=== PATIENT | female | born 1965 | race Caucasian/White ===

== ENCOUNTER 2024-02-19 09:55 | Outpatient (REF) | payer MEDICARE, SELFPAY | END 2024-02-19 09:56 | disposition home or self-care (01) | LOC: CF 09:55 | DX: Z13.89 Encounter for screening for other disorder (principal) ==

== ENCOUNTER 2024-02-20 12:42 | Outpatient (AMB) | payer OTHER, SELFPAY ==
--- NOTE | 2024-02-20 12:55 | A.SPINEOV_ITS ---
Intake Visit Reasons: cervical stenosis Intake Note: Ms. 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 HPI: This 58-year-old female developed severe neck pain in December 2023 after she put something in the often. The pain has not subsided. It feels like her head is too heavy for her neck. The pain radiates from the neck to the shoulders but does not go down her arms. At night she wakes up with numbness of her arms. She is currently in chiropractic therapy. She is petrified of injections. PMH: Hypertension, hypothyroidism, lumbar fusion Medications: Synthroid Allergies: Morphine, Lipitor, steroids Social history: Physical Exam: Pleasant female. Extension of the neck is painful. No neurological deficits for motor sensation or reflexes Radiological Studies: MRI of the cervical spine that is uploaded in our system shows severe degenerative disc disease C3-4, C4-5, C5-6 and C6-7 with multilevel neuroforaminal stenosis. Impression/Plan: This patient is suffering from an acute neck pain with severe arthritic changes on her MRI of the cervical spine. I explained to the patient that it is unclear to me where this sudden pain is coming from. Obviously, the arthritic changes were pre-existent. Chiropractic therapy seems to give some relief. Therefore I recommended to continue this. She should consider injections if the pain does not alleviates in the near future. I do not recommend any surgical intervention. Thank you for allowing me to participate in your patients care. total time spent was 35 minutes in counseling ,coordination of plan, personal review of imaging, surgical decision making and subsequent plan Sean Gilliam MD, PhD Spine Fellowship Trained Neurosurgeon Director, [facility] Coding Level of Care Code New Pt Level 3 (93501) Diagnoses Cervical radiculopathy due to degenerative joint disease of spine M47.22
== END 2024-02-20 14:47 | disposition home or self-care (01) ==
PROVIDERS: Visit Provider Neurological Surgery
DX: M47.22 Other spondylosis with radiculopathy, cervical region (principal)
CPT/HCPCS: 99203

== ENCOUNTER → 2024-02-20 12:42 | Outpatient (BNVA) | payer MEDICARE, OTHER, SELFPAY | PROVIDERS: Visit Provider Neurological Surgery ==

== ENCOUNTER 2025-06-29 13:46 | Outpatient (AMB) | payer OTHER, SELFPAY ==
--- NOTE | 2025-06-29 14:15 | A.SPINEOV_ITS ---
Intake Visit Reasons: Severe Neck/Back pain Intake Note: Mrs. Holley is here today c/o Severe Neck and back pain. 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 This patient developed severe sciatica 5 months ago. The pain radiates from the back down to her leg to the outside of her ankle. The pain is horrific and not responding to any forms of medication. She can hardly sleep. She can not walk or stand and sitting is the worst. Last week she went to the emergency room when she was giving a shot of Toradol that resulted in now also mild radiation in the left buttock. On exam, straight leg raise is positive with radiating pain down the right side in an L5 distribution. No motor or sensory deficits. An MRI of the lumbar spine at [place] shows status post L5-S1 lumbar fusion. More importantly there is a large synovial cyst L4-5 compressing the right L5 nerve root and that causes severe central stenosis. Dynamic lumbar x-rays today show a mild L4-5 spondylolisthesis without signs of instability. In summary, this patient is suffering from horrific right L5 radiculopathy due to a large synovial cyst compressing the L5 nerve root. Fortunately, there is no gross instability and therefore a resection of the extradural mass should be sufficient to relieve the right leg pain. She is aware that postoperatively the cyst can return, which would automatically make her a fusion candidate to treat the adjacent L4-5 segment. She is scheduled for 07/06/2025. I spent 40 minutes in his consult for history physical and review of imaging. Orders: Orders XR lumbar spine 4V min Today M54.16 - Radiculopathy, lumbar region, M71.38 - Other bursal cyst, other site Medications: New hydrocodone-acetaminophen 5-325 mg Partial Fill upon patient request. 1 tab PO TID PRN 20 tabs 0RF pain Coding Level of Care Code Est Pt Level 4 (59670) Diagnoses Synovial cyst of lumbar facet joint M71.38 Lumbar radiculopathy, right M54.16
--- OUTSIDE RECORDS SUMMARY | 2025-06-29 16:14 | XMS_ITS | Clinical Summary ---
Author Organization [facility] Address [address] [place] [address] Care Team Providers Care Financial Compliance Officer Name Role Phone Toma Fuentes MD Primary Care Provider Allergies Active Allergy Reactions Criticality Noted Date Comments Atorvastatin Angioedema High 03/08/2025 Morphine Vomiting 03/08/2025 Itchiness, tremors Medications predniSONE (DELTASONE) 10 mg tablet 18 day taper - 6,6,6,5,5,5,4,4, 4,3,3,3,2,2,2,1, 1,1 63 tablet Active Additional Information Patient not taking.Reported on 06/23/2025 cyclobenzaprine (FLEXERIL) 10 mg tablet SMARTSI Tablet(s) By Mouth 3 Times Daily Active DULoxetine DR (CYMBALTA) 60 mg capsule Take 60 mg by mouth once a day. Active DULoxetine DR (CYMBALTA) 30 mg capsule SMARTSI Capsule(s) By Mouth Daily Active levothyroxine (SYNTHROID, LEVOTHROID) 125 mcg tablet SMARTSI Tablet(s) By Mouth Daily Active rosuvastatin (CRESTOR) 10 mg tablet Take 10 mg by mouth once a day. Active calcium carbonate-vitam in D3 600 mg-10 mcg (400 unit) per tablet SMARTSI Tablet(s) By Mouth Twice Daily Active busPIRone (BUSPAR) 10 mg tablet SMARTSI Tablet(s) By Mouth Twice Daily 5 Active buPROPion XL (WELLBUTRIN XL) 150 mg tablet Take 150 mg by mouth once a day. Active buprenorphine (BUTRANS) 15 mcg/hour SMARTSI Patch(s) Once a Week Active Social History Tobacco Use Types Packs/Day Years Used Date Smoking Tobacco: Never Smokeless Tobacco: Never Tobacco Cessation:Counseling Given: Not Answered Alcohol Use Standard Drinks/Week Comments Yes 0 (1 standard drink = 0.6 oz pur e alcohol) Comments Unknown Sex and Gender Information Value Date Recorded Sex Assigned at Not on file Legal Sex Female 6:46 AM EDT Gender Identity Not on file Sexual Orientation Not on file Last Filed Vital Signs Vital Sign Reading Time Taken Comments Blood Pressure 136/88 03/08/2025 5:29 PM EDT Pulse 102 03/08/2025 5:29 PM EDT Temperature 35.7 C (96.3 F) 03/08/2025 5:29 PM EDT Respiratory Rate - - Oxygen Saturation 96% 03/08/2025 5:29 PM EDT Inhaled Oxygen Concentration - - Weight 86.8 kg (191 lb 6.4 oz) 03/08/2025 5:29 P M EDT Height - - Body Mass Index - - Plan of Treatment Health Maintenance Due Date Last Done Comments Cervical Cancer Screening 1965 FOBT / Fit Test 1965 HIV Screening 1965 HPV and Pap Smear 1965 Hepatitis C Screening 1965 Pap Smear 1965 Sigmoidoscopy 1965 Mammogram 2005 Pneumococcal Vaccine: 50+ Ye ars (1 of 1 - PCV) 2015 Hepatitis B Vaccines (3 of 3 - 19+ 3-dose series) 02/28/2020 10/18/2019, 08/30/2019 Zoster Vaccines (2 of 2) 09/08/2020 020, 10/18/2019, 08/30/2019 Cologuard 07/12/2024 07/12/2021, 07/12/2021 Alcohol/Substance Use Screening 10/06/2024 Depression Screening and Follow-Up 10/06/2024 Social Drivers of Health Vandana ual Screening 10/06/2024 Influenza Vaccine (#1) 2025 , 08/25/2023, 07/10/2021, Additional history exists DTaP,Tdap,and Td Vaccines (2 - Td or Tdap) 12/02/2033 12/02/2023 Colon Cancer Screening 11/16/2034 Colonoscopy 11/16/2034 11/16/2024, 08/20/2021 RSV Vaccine (60+ years old a nd patients) (1 - 1-dose 75+ series) 2040 COVID-19 Vaccine Completed 07/21/2024, , 08/22/2022, Additional history exists Insurance [facility] Care Teams Financial Compliance Officer Relationship Specialty Start Date End Date Toma Fuentes MD [address] [place] [address] PCP - General 04/24/17
--- OUTSIDE RECORDS SUMMARY | 2025-06-29 16:14 | XMS_ITS | Clinical Summary ---
Author Organization [facility] Address [address] [place] [address] Care Team Providers Care Bow Maker Production Name Role Phone Unavailable Primary Care Provider Unavailabl e Social History Tobacco Use Types Packs/Day Years Used Date Smoking Tobacco: Never Assessed Comments Unknown Sex and Gender Information Value Date Recorded Sex Assigned at Not on file Legal Sex Female 9:04 PM EDT Gender Identity Not on file Sexual Orientation Not on file Plan of Treatment Health Maintenance Due Date Last Done Comments Hepatitis C Screening 1965 Pap Smear 1981 DTaP/Tdap/Td (1 - Tdap) 1983 Mammogram/Breast Imaging 2005 Pneumococcal 50+ years (1 of 1 - PCV) 2015 Zoster (Shingrix) (1 of 2) 2015 COVID-19 Vaccine ( - 2023-2 5 season) 2025 Influenza (#1) 2025 RSV (1 - 1-dose 75+ series) 2040 HPV Vaccine (No Doses Required) Completed Hep A Aged Out No longer eligi ble based on patient's age to complete this topic Hep B Aged Out No longer eligi ble based on patient's age to complete this topic Hib Aged Out No longer eligi ble based on patient's age to complete this topic Meningococcal ACWY Aged Out No longer eligible based on patient's age to complete this topic Zoster (Zostavax) Discontinued
== END 2025-06-29 15:17 | disposition home or self-care (01) ==
PROVIDERS: Visit Provider Neurological Surgery
DX: M71.38 Other bursal cyst, other site (principal); M54.16 Radiculopathy, lumbar region
CPT/HCPCS: 99214

== ENCOUNTER 2025-06-29 13:46 | Outpatient (REF) | payer OTHER, SELFPAY ==
--- NOTE | ~2025-06-29 | XR_ITS ---
Examination: 4 view lumbar spine x-ray TECHNIQUE: AP and lateral: Flexion, neutral, and extension view x-rays of the lumbar spine. INDICATION: M71.38 - Other bursal cyst, other site No comparison study FINDINGS: There is moderate stool in the colon. Atherosclerotic calcifications are visible in the aorta and iliac arteries. There are 5 non-rib bearing lumbar segments. Vertebral body height is preserved. T12-L1: Unremarkable L1-L2: There is mild disc space narrowing L2-L3: Moderate severe disc space narrowing with subtle retrolisthesis, endplate sclerosis, and anterior osteophytes are present. There is no instability. L3-L4: There is mild to moderate disc space narrowing. There is subtle anterolisthesis on flexion without instability. There is facet sclerosis. L4-L5: There is mild disc space narrowing with minimal grade 1 anterolisthesis that is stable during flexion and extension. There is facet sclerosis. L5-S1: Level is fused with a screw placed from anterior sacrum into the L5 vertebral body. There are 2 small screws placed into the pedicles. There is interbody bone graft with osseous bridging. XR/XR lumbar spine 4V min IMPRESSION: Multilevel degenerative changes are most advanced at L2-3. There is no instability. L5-S1 surgical fusion. Electronically signed by: Bryant Morrow MD 06/29/2025 05:13 PM EDT RP
== END 2025-06-29 13:47 | disposition home or self-care (01) ==
LOC: HO.HOSX 13:46
PROVIDERS: Visit Provider Neurological Surgery
DX: M71.38 Other bursal cyst, other site (principal); M54.16 Radiculopathy, lumbar region
CPT/HCPCS: 72110

== ENCOUNTER → 2025-06-29 15:14 | Outpatient (BNV) | payer OTHER, SELFPAY | PROVIDERS: Visit Provider Radiology Diagnostic Radiology | DX: M51.360 Other intervertebral disc degeneration, lumbar region with discogenic back pain only (principal) | CPT/HCPCS: 72110 ==

== ENCOUNTER 2025-07-06 06:53 | Day surgery (SDC) | payer MEDICARE, SELFPAY ==
--- OUTSIDE RECORDS SUMMARY | 2025-07-01 13:13 | XMS_ITS | Clinical Summary ---
Author Organization [facility] Address [address] [place] [address] Care Team Providers Care Completions Engineer Name Role Phone Unavailable Primary Care Provider [...]
--- OUTSIDE RECORDS SUMMARY | 2025-07-01 13:13 | XMS_ITS | Clinical Summary ---
Author Organization [facility] Address [address] [place] [address] Care Team Providers Care Strategic Account Executive Name Role Phone Toma Fuentes MD Primary [...] 07/21/2024, , 08/22/2022, Additional history exists Insurance [facility] Care Teams Strategic Account Executive Relationship Specialty Start Date End Date Toma Fuentes MD [address] [place] [address] PCP - General 04/24/17
[2025-07-04 10:08] VITALS: BMI 29.8
[2025-07-06] VITALS (13 sets, daily range): BP systolic 145–193; BP diastolic 83–101; PULSE 90–101; RESP 12–20; TEMP 36.6–36.7; O2SAT 97–98; BMI 32.7
--- NOTE | ~2025-07-06 | FL_ITS ---
EXAMINATION: FL GUIDANCE ONLY HISTORY: L4-5 CYST REMOVAL COMPARISON: Correlation is made with plain films of the lumbar spine dated 06/29/2025. TECHNIQUE: Fluoroscopy time: 3.2 seconds. Cumulative Dose: 2.9439 mGy. DAP: 0.8408 Gycm2 Images: 2. FINDINGS: Fluoroscopic spot films of the lumbar spine in the lateral projection demonstrate a probe inferior to the L4 pedicles. FL/FL guidance in OR IMPRESSION: Fluoroscopy during procedure. Please see procedure report for additional information. Electronically signed by: Ramón Moreno MD 07/06/2025 10:33 AM EDT
--- NOTE | 2025-07-06 07:04 | MHC.SHP ---
Pre-Procedural Eval Section A - 24 Hr Update-Section A only Date of Service: 07/06/25 Section B - Complete if H&P > 30 days Chief Complaint: Radiculopathy, lumbar region,bursal cyst Allergies: Allergies Allergy/AdvReac Type Severity Reaction Status Date / Time morphine Allergy Severe projectile Verified 07/04/25 10:02 vomiting/full body rash atorvastatin (From Lipitor) AdvReac Severe leg Verified 07/04/25 10:02 cramping steroids AdvReac Severe agitation Uncoded 07/04/25 10:02 Review of Systems Sugical H&P ROS: Negative: Constitution, Cardiovascular, Respiratory, Neurological, Psychiatric, Hem-Onc, Allergic/Immunologic, Gastrointestinal, Genitourinary, Musculoskeletal, Integumentary, Endocrine and Eyes/Ears/Nose/Throat Exam Surgical H&P Exam: Not Evaluated: HEENT, Not Evaluated: Heart, Not Evaluated: Lungs, Not Evaluated: Extremities, Not Evaluated: Abdomen, Not Evaluated: Skin and Not Evaluated: Neurological Exam Comment: The patient is awake, alert, no acute distress. Proposed surgical incision site is clean, dry, no signs of recent trauma. Plan Diagnosis/Plan: Unchanged I have reviewed the history and physical and performed a pertinent physical examination on my patient. No changes have occurred unless specified. Plan remains the same, right-sided L4-5 lumbar decompression for synovial cyst. Time Spent With Patient Time: Total time managing care of this patient today __7__ minutes.
--- NOTE | 2025-07-06 09:01 | HO.ANESPROP2 ---
Documented by User: Madison Noland NP 07/04/25 12:55 HPI - Anesthesia Eval Consult details Narrative: 60yo F for Right L4-5 Synovial Cyst Removal PMFSH Active Problems Active Problems: All Active Problems Lumbar radiculopathy, right (Acute) Synovial cyst of lumbar facet joint (Acute) Cervical radiculopathy due to degenerative joint disease of spine (Acute) Past Medical History Medical History (Updated 07/04/25 @ 10:00 by Madisyn Duff RN) RLS (restless legs syndrome) Depression Sleep apnea Elevated cholesterol HTN (hypertension) Hypothyroid Back pain Neck pain Surgical History Surgical History (Updated 07/06/25 @ 07:05 by Raven Donato RN) H/O section History of lumbar fusion Hx of lumbar discectomy Hx of eye surgery Hx of umbilical hernia repair Hx of hysterectomy H/O colonoscopy Social History Social History Are you a primary care aide to a significant other at home: No Do you presently have visiting nurse or other home services: No Comment: rolling walker prn Patient Tobacco Use Status: Former Tobacco user Tobacco use type: Cigarette Years Smoked: 15 Use of substances other than those prescribed or required for medical reasons: Yes Substance Use Type Other:: gummies Substance Use Frequency: Daily Have you been hit, kicked, punched, or otherwise hurt by someone within the past year? If so, by whom?: No Spiritual Healthcare Practices: no Mandaeism Healthcare Practices: no Cultural Healthcare Practices: no Are you DNR?: No Advance Directives on File: No Patient : No FDLMP: n/a : No Poor oral hygiene: No Meds Allergies Allergy/AdvReac Type Severity Reaction Status Date / Time morphine Allergy Severe projectile Verified 07/04/25 10:02 vomiting/full body rash atorvastatin (From Lipitor) AdvReac Severe leg Verified 07/04/25 10:02 cramping steroids AdvReac Severe agitation Uncoded 07/04/25 10:02 Home Medications ?Medication ?Instructions ?Recorded ?Confirmed ?Last Taken ?Type buprenorphine 15 mcg/hour weekly 1 patch topical QWEEK PRN back/leg 07/04/25 07/04/25 Unknown History transdermal patch pain buspirone 10 mg tablet 10 mg PO BID 07/04/25 07/04/25 Unknown History cetirizine 10 mg tablet (Zyrtec) 10 mg PO DAILY 07/04/25 07/04/25 Unknown History cyclobenzaprine 10 mg tablet 10 mg PO TID 07/04/25 07/04/25 Unknown History duloxetine 60 mg capsule,delayed 120 mg PO DAILY 07/04/25 07/04/25 Unknown History release fluticasone propionate 50 1 spray intranasal DAILY 07/04/25 07/04/25 Unknown History mcg/actuation nasal spray,suspension hydrochlorothiazide 25 mg tablet 25 mg PO DAILY 07/04/25 07/04/25 Unknown History levothyroxine 125 mcg tablet 125 mcg PO DAILY 07/04/25 07/04/25 07/06/25 History multivitamin 1 tab PO DAILY 07/04/25 07/04/25 Unknown History rosuvastatin 10 mg tablet 10 mg PO DAILY 07/04/25 07/04/25 Unknown History Exam Height,Weight and Vital Signs: Height 5 ft 7 in Weight 86.297 kg Pertinent Lab Results Pertinent Lab Results: CBC and BMP 08/2024 from outside facility [place] Narrative Narrative: EKG 02/2024 NSR @ 95 Assessment and Plan Assessment Anesthesia Assessment: Chart Reviewed Documented by User: Tiffany Yuan DO 07/06/25 09:04 [facility] Past Medical History Medical History (Updated 07/04/25 @ 10:00 by Madisyn Duff RN) RLS (restless legs syndrome) Depression Sleep apnea Elevated cholesterol HTN (hypertension) Hypothyroid Back pain Neck pain Family History Family history of problems with anesthesia: No Surgical History Surgical History (Updated 07/06/25 @ 07:05 by Raven Donato RN) H/O section History of lumbar fusion Hx of lumbar discectomy Hx of eye surgery Hx of umbilical hernia repair Hx of hysterectomy H/O colonoscopy History of Problems with Anesthesia: No Social History Social History Are you a primary care aide to a significant other at home: No Do you presently have visiting nurse or other home services: No Comment: rolling walker prn Patient Tobacco Use Status: Former Tobacco user Tobacco use type: Cigarette Years Smoked: 15 Use of substances other than those prescribed or required for medical reasons: Yes Substance Use Type Other:: gummies Substance Use Frequency: Daily Have you been hit, kicked, punched, or otherwise hurt by someone within the past year? If so, by whom?: No Spiritual Healthcare Practices: no Mandaeism Healthcare Practices: no Cultural Healthcare Practices: no Are you DNR?: No Advance Directives on File: No Patient : No FDLMP: n/a : No Poor oral hygiene: No Meds Allergies Allergy/AdvReac Type Severity Reaction Status Date / Time morphine Allergy Severe projectile Verified 07/04/25 10:02 vomiting/full body rash atorvastatin (From Lipitor) AdvReac Severe leg Verified 07/04/25 10:02 cramping steroids AdvReac Severe agitation Uncoded 07/04/25 10:02 Home Medications ?Medication ?Instructions ?Recorded ?Confirmed ?Last Taken ?Type buprenorphine 15 mcg/hour weekly 1 patch topical QWEEK PRN back/leg 07/04/25 07/04/25 Unknown History transdermal patch pain buspirone 10 mg tablet 10 mg PO BID 07/04/25 07/04/25 Unknown History cetirizine 10 mg tablet (Zyrtec) 10 mg PO DAILY 07/04/25 07/04/25 Unknown History cyclobenzaprine 10 mg tablet 10 mg PO TID 07/04/25 07/04/25 Unknown History duloxetine 60 mg capsule,delayed 120 mg PO DAILY 07/04/25 07/04/25 Unknown History release fluticasone propionate 50 1 spray intranasal DAILY 07/04/25 07/04/25 Unknown History mcg/actuation nasal spray,suspension hydrochlorothiazide 25 mg tablet 25 mg PO DAILY 07/04/25 07/04/25 Unknown History levothyroxine 125 mcg tablet 125 mcg PO DAILY 07/04/25 07/04/25 07/06/25 History multivitamin 1 tab PO DAILY 07/04/25 07/04/25 Unknown History rosuvastatin 10 mg tablet 10 mg PO DAILY 07/04/25 07/04/25 Unknown History Exam Exam Date and Time: Height 5 ft 4 in Weight 86.5 kg Vital Signs Temperature 98.0 F 07/06/25 07:23 Pulse Rate 101 H 07/06/25 07:23 Respiratory Rate 16 07/06/25 07:23 Blood Pressure 187/101 H 07/06/25 07:23 Pulse Oximetry 98 07/06/25 07:23 Oxygen Delivery Method Room Air 07/06/25 07:23 Temperature 98.0 F 07/06/25 07:23 Pulse Rate 101 H 07/06/25 07:23 Respiratory Rate 16 07/06/25 07:23 Blood Pressure 187/101 H 07/06/25 07:23 Pulse Oximetry 98 07/06/25 07:23 Oxygen Delivery Method Room Air 07/06/25 07:23 Airway Mallampati Class: II TM Dist: <=3cm Neck ROM: Full Partial: Upper and Lower Heart: S1S2 Lungs: CTAB Assessment and Plan Assessment Anesthesia Assessment: Anesthesia Plan Discussed and Chart Reviewed Final Anesthetic Review Family History of Problems with Anesthesia: No History of Problems with Anesthesia: No NPO: Yes ASA Class: III Final Preanesthetic Review: No Changes in Pt Med Stat, Meds/Allgs Chart Reviewed, Consent Obtained/Reviewed and Anes Risks/Benef Reviewed Patient Risk: Intermediate Procedure Risk: Intermediate Anesthetic Plan Anesthetic Plan: GA and Agree w/ Assess. and Plan Disposition: Standard PACU
--- NOTE | 2025-07-06 10:30 | P.OP_ITS ---
Operative Note Operative Note Date of Service: 07/06/25 Narrative: Preoperative Diagnosis: Extradural benign mass (synovial cyst) compressing the right L5 nerve root Operation: L4-5 Laminotomy for removal of extradural benign mass with use of microscope Consent Informed Consent was obtained for this operation. I have explained the nature, purpose and benefits of the operation. I have discussed the risks and benefit of the operation including possible complications or adverse events with patient/family. Alternative(s) were discussed with the patient with their relative benefits and risks as well as the consequences of not accepting the operation were included in obtaining consent. Surgeon: SAMUEL KINCAID MD, PHD Procedure Assisted By: Bernardo arce Description of Procedure This 60-year-old female is suffering from a right lumbar radiculopathy due to a extradural benign mass compressing the right L5 nerve root. The patient was offered a removal of the mass to decompress the nervous structure. The procedure complications were explained. The patient was consented. The patient was brought to the operating room and endotracheally intubated. The patient was turned in prone position on the Hemanth frame. Prep and drape was done followed by timeout. Physician human resources assistant provided access. A mid lumbar incision was made followed by release of the paravertebral muscle on the right side to expose the L4-5 lamina and facet joint. An intraoperative x-ray was obtained to confirm the correct level. The microscope was brought in. I took over the procedure. The high-speed drill was used to do a L4-5 laminotomy. The flavum ligament was opened to expose the underlying thecal sac and start of the L5 nerve root. A large cystic mass was identified and dissected from the thecal sac and L5 nerve root. When the mass was completely relieved from the L5 nerve root I removed it in toto. Most likely we were dealing with a synovial cyst. A long the nerve root could be easily passed, a sign of adequate decompression of the nerve root . The microscope was removed. Hemostasis was done. Incision was closed in 2 layers. Steri-Strips were used to approximate incision. An OpSite with Tegaderm was used to cover the incision. All sponge needle counts were correct. Patient was extubated and transported in stable is to recovery room. Anesthesia: General Estimated Blood Loss (ml): Minimal Duration of Surgery: Under 60 Minutes Postoperative Plan: Discharge to home
--- NOTE | 2025-07-06 10:40 | PM.DS ---
DS: Providers Provider Date of Service: 07/06/25 Date of discharge: 07/06/25 Primary care physician: Toma Fuentes MD DS: Summary Time Attestation Discharge Coordination Time (in mins): 12 Quality: Safe Use of Opioids Does Pt have an Active Cancer Diagnosis on the Problem List?: No Quality: Stroke Does the patient have a stroke diagnosis?: No Physical Exam Vital Signs: Vital Signs: Last Vital Signs Temp 98.0 F 07/06/25 07:23 Pulse 101 H 07/06/25 07:23 Resp 16 07/06/25 07:23 BP 187/101 H 07/06/25 07:23 Pulse Ox 98 07/06/25 07:23 O2 Del Method Room Air 07/06/25 07:23 BMI result Body Mass Index 32.7 Discharge Plan Discharge Patient Disposition: Home, Self-Care Referrals: Toma Fuentes MD [Primary Care Provider, Internal Medicine] - 1 Week Discharge Medications: Continued multivitamin Tablet 1 tab PO DAILY cyclobenzaprine 10 mg tablet 10 mg PO TID cetirizine [Zyrtec] 10 mg Tablet 10 mg PO DAILY levothyroxine 125 mcg tablet 125 mcg PO DAILY buspirone 10 mg tablet 10 mg PO BID hydrochlorothiazide 25 mg tablet 25 mg PO DAILY fluticasone propionate 50 mcg/actuation [place],Suspension 1 spray INTRANASAL DAILY Rx Instructions: administer into each nostril rosuvastatin 10 mg tablet 10 mg PO DAILY duloxetine 60 mg capsule,delayed release(DR/EC) 120 mg PO DAILY Held buprenorphine 15 mcg/hour patch weekly 1 patch topical QWEEK PRN (Reason: back/leg pain) Hold Instructions: Resume on 07/06/25. Contraindicated with concurrent Vicodin use. Talk with provider about continuing. hydrocodone-acetaminophen 5-325 mg tablet 1 tab PO TID PRN (Reason: pain) Qty: 20 0RF Hold Instructions: Resume on 07/06/25. Contraindicated with concurrent buprenorphine use. Talk to prescriber. Rx Instructions: Partial Fill upon patient request. Discharge Orders: Discharge Order (Routine); Ordered 07/06/25 Ordered By: Bernardo Bradley Diet: Advance to usual diet Activity on Discharge: As tolerated Activity Restrictions/Additional Instructions: After your spinal surgery we ask you to observe the following restrictions/guidelines: Activity: It is normal to feel some discomfort as you increase your activity, but that will improve with time. We ask you avoid heavy lifting or acitivities that cause pain. As a general rule, 8lbs is a safe limit for lifting right after surgery. Walk as much as you feel comfortable but not to exhaustion. You will feel extra tired the first few days after surgery. Stay well hydrated. It is OK to walk up and down stairs You may return to driving when you are off narcotics (such as vicodin, oxycodone, dilaudid, etc), and you are back to normal functional capacity. If you have any concerns please check with office before driving. Return to work is specific to each patient and each surgery, so please speak with your doctor/PA at first follow up. Please bring paperwork such as FMLA at that time if you need it filled out. Medications: Please continue your home pain control medications and speak with her prescriber as your medication list states that you are taking both buprenorphine and Vicodin at the same time which are contraindicated for concurrent prescriptions as buprenorphine is a partial opiate agonist. We recommend you take 1,000mg Tylenol every 8 hours for the first few weeks after surgery, if you do not have any liver issues and can tolerate this medication. Do not exceed 4,000mg daily. We will give you a short supply of narcotics after surgery (usually one weeks worth). If you need more please call the office but do not use more than prescribed. You will need to give our office 48 hours notice if you need narcotics refilled and we do not fill narcotics on weekends or evenings. If you are on a narcotic, it is a good idea to take a stool softener such as colace or senna to avoid constipation If you take blood thinner such as aspirin, Plavix, Coumadin, Effient, Eliquis etc for conditions such as Afib, DVT, Pulmonary embolus, coronary disease, stents etc please speak with your surgeon about specific details as to when you can resume these medications. You can resume NSAIDs on post op day 1 (eg: Motrin, Naproxen, etc). Follow up: Please call the office, , after surgery to arrange a 3 week follow up for wound check. Wound Care: You may remove your dressing on the first day after surgery. ?You may ?leave open to air. Please do not remove the steri strips underneath. they will fall off on their own in one week. IT IS NORMAL FOR THE WOUND TO OOZE OR BE BLOODY FOR A FEW DAYS AFTER SURGERY. ?IF THIS HAPPENS JUST PLACE NEW DRESSING OVER IT TO AVOID STAINING CLOTHES. You may shower on post op day # 1 We ask that you do not let the water soak the wound. If it does get wet, just towel dry lightly. Please do not scrub your incision or place any type of chemical/ointment on the wound. No tub baths, pools or jacuzzis for one month. If you have any leaking or redness from your wound, or fevers, please call the office. Print Language: Nepalese
== END 2025-07-06 13:04 | disposition home or self-care (01) ==
PROVIDERS: PCP Family Medicine; Visit Provider Neurological Surgery
PROC: (CPT 63267; principal; 2025-07-06 09:10)
DX: M71.38 Other bursal cyst, other site (principal); M54.16 Radiculopathy, lumbar region; M54.41 Lumbago with sciatica, right side; R26.2 Difficulty in walking, not elsewhere classified; G47.33 Obstructive sleep apnea (adult) (pediatric); I10 Essential (primary) hypertension; E78.00 Pure hypercholesterolemia, unspecified; Z79.899 Other long term (current) drug therapy; Z88.8 Allergy status to other drugs, medicaments and biological substances; Z88.5 Allergy status to narcotic agent; Z98.1 Arthrodesis status; Z87.891 Personal history of nicotine dependence
CPT/HCPCS: 63267; J0131; J0690; J1885; J2003; J2250; J2405; J2704; J3010

== ENCOUNTER → 2025-07-06 06:53 | Outpatient (BNV) | payer MEDICARE, SELFPAY | PROVIDERS: PCP Family Medicine; Visit Provider Neurological Surgery | DX: M71.38 Other bursal cyst, other site (principal) | CPT/HCPCS: 63267; 69990; 99499 ==

== ENCOUNTER 2025-07-28 14:19 | Outpatient (AMB) | payer MEDICARE, SELFPAY ==
--- NOTE | 2025-07-28 14:24 | HO.SPINEOV ---
Intake Visit Reasons: 1st post op Intake Note: Ms. Holley is here today for her 1st post op. Content Publisher Required: No Allergies morphine Allergy (Severe, Verified 07/28/25 14:25) projectile vomiting/full body rash atorvastatin (From Lipitor) Adverse Reaction (Severe, Verified 07/28/25 14:25) leg cramping steroids Adverse Reaction (Severe, Uncoded 07/04/25 10:02) agitation Assessment & Plan Assessment & Plan (1) Lumbar radiculopathy, right: Code(s): M54.16 - Radiculopathy, lumbar region Category: Medical Plan Mrs Holley is doing great. She is 3 weeks out from her synovial cyst removal in her leg pain is gone. She continues to have back pain which radiates out into her hips. I suspect this is muscular. Her wound has healed up beautifully. We discussed activity guidelines, restrictions and expectations after lumbar surgery. We will see her back in 6 weeks for final postoperative visit. Mic Gilliam MD, PhD [facility] Coding Level of Care Code Global (35043) Diagnoses Lumbar radiculopathy, right M54.16
--- OUTSIDE RECORDS SUMMARY | 2025-07-28 18:09 | XMS_ITS | Data Portability ---
Author Organization [facility] Address [address] [place] [address] Care Team Providers Care Vegetable Grader Name Role Phone CHRISTINA DWYER Primary Care Provider CHRISTINA DWYER Referring Provider Assessment Encounter Date Assessment Date Assessment LastModified by Organization Details LastModified Time 01/29/2025 01/29/2025 My supervising provider is ___Robert__ _ for this visit and Dr Patel____ _ was not physically present in the office for this office visit. I was not present in the office and not readily available for any questions or concerns. I have reviewed the history, physical and assessment of this encounter and agree with the treatment plan. Dr. Robert spring1 Not available 01/29/2025 22:05:56 Plan of Treatment Reminders Order Date Submit Date Provider Last Modified By Organization Details Last Modified Time Details Appointments None recorded. 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 Procedures None recorded. Surgeries cystoscopy (SURG) 2013 014 [facility], [address] [facility], [place], [address], 4 08:38:25 Imaging None recorded. Medication Orders Medrol (Blaze) 4 mg tablets in a dose pack 2024 025 [id number], [address] [place], [address], 5 13:38:12 Patient TargetsNo targets recorded. Patient Instructions Encounter Date Encounter Id Patient Instructions Last Modified By Organization Details Last Modified Time 06/19/2012 [id number] OK to restart Bl ack vijay. Reviewed resumption of normal activities. Questions answered. Advised to call prn concerns. Should have annual pelvic exams; paps can be collected q 2-3 years for a while, then stopped if normal. shadi Not available 06/19/2012 14:03:05 12/07/2013 [id number] 1. PHYSICAL THERAPY: pt encouraged to stay active. continue home exercises and TENS 2. BEHAVIORAL THERAPY: denies depression/psych issues 3. MEDICATIONS: none prescribed today. continue current meds 4. INTERVENTIONS: will schedule for caudal nori and lumbar tpi 5. FUNCTION: affected severely due to pain 6. PAIN ASSESSMENT: n/a - first visit 7. COMPLIANCE: n/a -first visit 8. WEIGHT LOSS/DIET/SMOKING CESSATION: counselled 9. LABS/RADIOLOGY: Recent MRI of the L spine reviewed 11. REFERRALS : none 10. FOLLOW UP: one month post op pt with chronic lower back pain radiating to b/l LE is multifactorial and secondary to post-lami syndrome, radiculopathy, facet arthropathy and myofascial pain. will do a trial of nori and tpi. she will need facet blocks also depending on how she responds to nori. Spinal cord stimulation therapy introduced kkalava Not available 12/07/2013 10:46:48 05/23/2020 [id number] COVID Preventation slupinski Not availa ble 05/23/2020 10:31:39 Respiratory Home Management slupinski Not available 05/23/2020 10:31:39 sore throat: car e instructions slupinski Not available 05/23/2020 10:31:39 01/29/2025 [id number] follow up with PCP 1 week for recheck if pain worsens, fever, numbness/tingling or radiated pain into legs start, urinary/bowel incontinence or difficulty occur seek immediate medical attention You have had an Urgent Care Visit which is designed to address acute issues. It does not represent an exhaustive evaluation of your symptom complex, but is an attempt to treat and manage the most likely cause of your most pressing physical issues. If you are not improved in the time frame that we have discussed, please seek the advice of your PCP who is in a position to order further diagnostic testing and possible specialist consultation. If your condition is worsening despite the treatment recommendations please do not wait to see your PCP and do proceed to the closest ER where a comprehensive evaluation including consideration to lab and other diagnostic testing as well as consultation is more expeditiously accessible. If you were prescribed medications they have been directly submitted to your pharmacy on file. Please make sure you finish all your medications and if you develop major side effects related to them please do stop taking them and check with your PCP to see if you need to get an alternative medication. if you had any laboratory testing or XRAYs done at today's visit, please make sure you obtain your results from us tomorrow or the time frame discussed at your visit. Not available 01/29/2025 13:39:03 Please note this report has been produced using speech recognition software and may contain errors related to that systems translation. Errors in grammar, punctuation, and spelling may be present. It may also include errors in words and phrases . If there are any question or concerns please feel free to contact me for clarification. Not available 01/29/2025 13:39:08 Reason for Referral None Reported. Results Created Date Observation Date Name Description Value Unit Range Abnormal Flag Note LastModifiedBy Organization Detail LastModifiedTime 10/15/19 14 10/15/2013 urina lysis , dipst ick Specific [place] 1.020 Not Available [facility] [address] [facility] [place], [address], 10/15/2013 13:47:37 10/15/19 14 10/15/2013 urina lysis , dipst ick ph 6.0 Not Available [facility] [address] [facility] [place], [address], 10/15/2013 13:47:37 10/15/19 14 10/15/2013 urina lysis , dipst ick Leukocytes Neg Not Available [address] [place], [address], 10/15/2013 13:47:37 10/15/19 14 10/15/2013 urina lysis , dipst ick Nitrate Neg Not Available [address] [place], [address], 10/15/2013 13:47:37 10/15/19 14 10/15/2013 urina lysis , dipst ick Protein Neg Not Available [address] [place], [address], 10/15/2013 13:47:37 10/15/19 14 10/15/2013 urina lysis , dipst ick Glucose Normal Not Available [address] [place], [address], 10/15/2013 13:47:37 10/15/19 14 10/15/2013 urina lysis , dipst ick Ketone Normal Not Available [facility] [address] [facility] [place], [address], 10/15/2013 13:47:37 10/15/19 14 10/15/2013 urina lysis , dipst ick UBG Normal Not Available [address] [place], [address], 10/15/2013 13:47:37 10/15/19 14 10/15/2013 urina lysis , dipst ick Bilirubin Negati ve Not Available [facility] [address] [facility] [address], [place], [address], 10/15/2013 13:47:37 10/15/19 14 10/15/2013 urina lysis , dipst ick Blood 50 Not Available [facility] [address] [facility] [address], [place], [address], 10/15/2013 13:47:37 05/23/20 20 05/24/2020 SARS CoV 2 RNA (COVI D-19) , QL, 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 This test has not been FDA clear ed or appro romelia. This test has been autho rized by FDA under an Emerg ency Use Autho rizat ion (EUA) . This test is only autho rized for the durat ion of time the decla ratio n that circu mstan santosh exist justi fying the autho rizat ion of the emerg ency use of in vitro diagn ostic tests for detec tion of SARS- CoV-2 virus and/o r diagn osis of COVID -19 infec tion under secti on 564(b )(1) of the Act, 21 U.S.C . 360bb b-3(b )(1), unles s the autho rizat ion is termi nated or revok ed soone r. When diagn ostic testi ng is negat cesar, the possi bilit y of a false negat cesar resul t shoul d be consi dered in the maty xt of a patie nt's recen t expos ures and the prese nce of clini floresita signs and sympt oms consi stent with COVID -19. An indiv idual witho ut sympt oms of COVID -19 and who is not lexx ing SARS- CoV-2 virus would expec t to have a negat cesar (not detec nathaniel) resul t in this assay . Perfo rmed at: RN - [facility] Adi barahona [address], [place] [address] Lab Direc tor: Pablito Garcia MD, Phone : [phone] Not Available [facility] [address] [place], [address], 05/24/2020 11:13:27 05/23/20 20 05/25/2020 cultu re, throa t throat culture NORMAL THROAT NAYANA Not Available [facility] [address] [place], [address], 05/25/2020 10:36:19 05/23/20 20 05/23/2020 rapid strep group A, throa t Result negati ve Not Available [facility] [address] [place] [address], [address], 05/23/2020 10:31:30 05/23/20 20 05/23/2020 rapid strep group A, throa t Lot# [id number] 2021 Not Available [facility] [address] [place] [address], [address], 05/23/2020 10:31:30 05/23/20 20 05/23/2020 rapid strep group A, throa t Internal Control Valid Not Available [facility] [address] [place] [address], [address], 05/23/2020 10:31:30 08/16/20 21 08/17/2021 SARS- COV-2 (NAAT ) sars-cov-2 NOT DETECT ED not detect . The Aptim a SARS- CoV-2 assay is a nucle ic acid ampli ficat ion in vitro diagn ostic test inten ded for the quali tativ e detec tion of RNA from SARS- CoV-2 using Trans cript ion Media nathaniel Ampli ficat ion (TMA) isola nathaniel and purif ied from nasop haryn geal (CHAIR TRIMMER), nasal , mid-t urbin ate, and oroph aryng eal (OP) swab speci mens obtai ta from indiv idual s meeti ng COVID -19 clini floresita and/o r epide miolo gical crite miguel a. The Aptim a TMA metho d is equiv alent in sensi tivit y and speci ficit y to metho ds utili zing PCR and RT-PC R. Resul ts are for the ident ifica tion of SARS- CoV-2 RNA which is gener ally detec table in upper respi rator y sampl es durin g the acute phase of infec tion. Posit cesar resul ts are indic ative of the prese nce of SARS- CoV-2 RNA; clini floresita corre latio n with patie nt histo ry and other diagn ostic infor matio n is neces gianfranco to deter mine patie nt infec tion statu s. Posit cesar resul ts do not rule out bacte rial infec tion or co-in fecti on with other virus es. Negat cesar resul ts do not precl ude SARS- CoV-2 infec tion and shoul d not be used as the sole basis for patie nt manag ement decis ions. Negat cesar resul ts must be combi ta with clini floresita obser vatio ns, patie nt histo ry, and epide miolo gical infor matio n. The Aptim a SARS- CoV-2 assay is only for use under the Food and Drug Admin istra tion' s Emerg ency Use Autho rizat ion (EUA) . Not Available [facility] [address] [place] [address], [address] 08/17/2021 09:35:13 08/20/20 21 08/20/2021 GROSS AND MICRO SCOPI C LEVEL 4 results ----- ----- ----- ----- ----- ----- ----- ----- ----- ----- ----- ----- ----- ----- ----- ----- ----- ----- -- RUN DATE: 08/22 Alcides od *Live * - LAB PAGE 1 RUN TIME: 1155 Speci men Inqui ry ----- ----- ----- ----- ----- ----- ----- ----- ----- ----- ----- ----- ----- ----- ----- ----- ----- ----- -- PATIE NT: Holley Kameron ACCT: [id number] LOC: MARINA [place] U: [id number] AGE/S X: 56/F ROOM: RE08/[address]: Twan schultz : [birth year] BED: DIS: STATU S: DEP [facility] [place]: ----- ----- ----- ----- ----- ----- ----- ----- ----- ----- ----- ----- ----- ----- ----- ----- ----- ----- -- SPEC : [id number] RECD: 08/21-0 706 STATU S: EZIOCody MAST NUM: [id number] JEANCARLOS: 08/20-[address]: Twan schultz ENTER ED: 08/21-0 707 SP TYPE: Surgi floresita OTHR DR: Maricel Santizo rstra sse ORDER ED: Gross Micro L4/4 Copie s To: Twan schultz [address] [place] [address] [phone] [email or web address] Maricel Santizo rstra sse [address] [place] [address] [phone] [email or web address] rg Histo logy: TISSU E ID BLK FRZ PCS BLOCK PROCE DURE LEVEL LEVEL PROCE DURE COM ____ _ ___ ___ ___ GIBX A _ ___ ___ ___ GIBX B _ ___ ___ ___ GIBX C _ ___ ___ ___ GIBX D _ ___ ___ ___ MARKE RS: GROSS DESCR IPTIO N REVIE WED PROCE DURES : Gross Micro L4 (08/06) TISSU ES: A. Non-G astri c Biops y - CECAL POLYP B. Non-G astri c Biops y - ASCEN DING COLON POLYP S X 2 C. Non-G astri c Biops y - TRANS VERSE COLON POLYP S X 3 D. Non-G astri c Biops y - RECTA L POLYP Final Diagn osis A. CECAL POLYP , BIOPS Y: - Tubul ar adeno ma. B. TWO POLYP S, ASCEN DING COLON , BIOPS Y: - Tubul ar adeno ma. C. THREE POLYP S, TRANS VERSE COLON , BIOPS Y: - Tubul ar adeno ma x two. D. RECTA L POLYP , BIOPS Y: - Hyper plast ic polyp . OLY NUED ON NEXT PAGE ----- ----- ----- ----- ----- ----- ----- ----- ----- ----- ----- ----- ----- ----- ----- ----- ----- ----- -- RUN DATE: 08/22 Alcides rice *Live * - LAB PAGE 2 RUN TIME: 1155 Speci men Inqui ry ----- ----- ----- ----- ----- ----- ----- ----- ----- ----- ----- ----- ----- ----- ----- ----- ----- ----- -- SPEC: [id number] PATIE NT: Kameron Holley [id number] (Cont inued ) ----- ----- ----- ----- ----- ----- ----- ----- ----- ----- ----- ----- ----- ----- ----- ----- ----- ----- -- Tonya Aguilerar petraio n A. Recei romelia in forma nathan label ed Mirella [place] , [birth year]-05 and ceca l polyp . It consi sts of a singl e fragm ent of soft, guadarrama tissu e measu ring 5 x 3 x 2 mm. Filte red and all proce ssed in casse tte A. B. Recei romelia in forma nathan label lalitha Holley 03-05 and asce nding colon , polyp s x 2 . It consi sts of four fragm ents of soft, guadarrama tissu e measu ring 15 x 5 x 1 mm. in aggre gate. Filte red and all proce ssed in casse tte B. C. Recei romelia in forma nathan label ed Mirella [place] , [birth year]-05 and rosenthal svers e colon , polyp s x 3 . It consi sts of multi ple fragm ents of soft, guadarrama tissu e measu ring 10 x 5 x 2 mm. in aggre gate. Filte red and all proce ssed in casse tte C. D. Recei romelia in forma nathan label ed Mirella [place] , [birth year]-05 and rect al polyp . It consi sts of a singl e fragm ent of soft, guadarrama tissu e measu ring 4 x 3 x 2 mm. Filte red and all proce ssed in casse tte D. (SLR) 08-21 Post- Opera tive Diagn osis Polyp s, Hemor rhoid s Pre-O perat cesar Diagn osis Posit cesar colog uard ----- ----- ----- ----- ----- ----- ----- ----- ----- ----- ----- ----- ----- ----- ----- ----- ----- ----- -- Nikki morrison (sign ature on file) _ Sarah Crowell MD 08/22 1155 ----- ----- ----- ----- ----- ----- ----- ----- ----- ----- ----- ----- ----- ----- ----- ----- ----- ----- -- END OF REPOR T Not Available [facility] [address] [place] [address], [address] 08/22/2021 11:55:48 11/16/19 25 11/16/2024 HEMAT OXYLI N AND EOSIN STAIN results ----- ----- ----- ----- ----- ----- ----- ----- ----- ----- ----- ----- ----- ----- ----- ----- ----- ----- -- RUN DATE: 11/19 Alcides rice *Live * - LAB PAGE 1 RUN TIME: 1153 Speci men Inqui ry ----- ----- ----- ----- ----- ----- ----- ----- ----- ----- ----- ----- ----- ----- ----- ----- ----- ----- -- PATIE NT: Kameron [place] ACCT: [id number] LOC: SUE LIMA U: [id number] AGE/S X: 59/F ROOM: RE11/[address]: Twan schultz MD : [birth year] BED: DIS: STATU S: DEP [facility] [place]LOC: ----- ----- ----- ----- ----- ----- ----- ----- ----- ----- ----- ----- ----- ----- ----- ----- ----- ----- -- SPEC : [id number] RECD: 11/16- 229 STATU S: SOUT REQ NUM: [id number] JEANCARLOS: 11/16- [address]: Twan schultz MD ENTER ED: 11/16- 230 SP TYPE: Surgi floresita OTHR DR: Maricel Santizo rstra sse MD ORDER ED: LAWRENCE Stain /2, Gross Micro L4 Copie s To: Twan schultz MD [address] [facility] [address] [place] [address] [phone] [email or web address] Maricel Santizo rstra sse MD [address] [place] [address] [phone] [email or web address] Histo logy: TISSU E ID BLK FRZ PCS BLOCK PROCE DURE LEVEL LEVEL PROCE DURE COM ____ _ ___ ___ ___ ENDO 001 N 001-0 1 HE Stain 001 001-0 2 HE Stain MARKE RS: GROSS DESCR IPTIO N REVIE WED PROCE DURES : HE Stain (11/06 10/30- 1244) Gross Micro L4 (11/06 10/30- 1230) TISSU ES: Biops y - POLYP DESCE NDING Final Diagn osis Biops y - POLYP DESCE NDING : Tubul ar adeno ma. Gross Descr iptio n [place]e ,Kameron a M, date of 03/05 , polyp desce nding colon . Recei romelia in forma nathan is a singl e fragm ent of soft guadarrama tissu e measu ring 14 x 3 x 2 mm. Speci taiwo is filte red all proce ssed in 1 casse tte. OLY CASTILLO ON NEXT PAGE ----- ----- ----- ----- ----- ----- ----- ----- ----- ----- ----- ----- ----- ----- ----- ----- ----- ----- -- RUN DATE: 11/19 Alcides rice *Live * - LAB PAGE 2 RUN TIME: 1153 Speci men Inqui ry ----- ----- ----- ----- ----- ----- ----- ----- ----- ----- ----- ----- ----- ----- ----- ----- ----- ----- -- SPEC: [id number] PATIE NT: Kameron Holley [id number] (Cont inued ) ----- ----- ----- ----- ----- ----- ----- ----- ----- ----- ----- ----- ----- ----- ----- ----- ----- ----- -- ----- ----- ----- ----- ----- ----- ----- ----- ----- ----- ----- ----- ----- ----- ----- ----- ----- ----- -- Nikki d (sign ature on file) _ Gavino luz MD 11/19 1153 ----- ----- ----- ----- ----- ----- ----- ----- ----- ----- ----- ----- ----- ----- ----- ----- ----- ----- -- END OF REPOR T Not Available [facility] Department [address] [place] [address], [address] 11/19/2024 11:53:57 10/15/19 14 10/04/2013 imagi ng/di [facility] record ed. CRISTIANO Not Available 2013 13:56:13 12/08/19 14 03/01/2011 imagi ng/di agnos tic resul t No observ ation record ed. kkalava Not Available 2013 17:36:48 12/08/19 14 08/24/2010 imagi ng/di agnos tic resul t No observ ation record ed. kkalava Not Available 2013 17:36:48 12/23/19 14 12/21/2013 radio logy repor t Locati on: [facility] RADIOL OGY DEPART [address] RADIOL OGY [phone] [place]. [address] FAX: [phone] ___ [place] 0319-0 067 OR [id number] 1532 Sonia Mae MD F OBSV: Other Provid er: ; [id number] LUMBAR TPI/ [place] [id number] CAUDAL NORI RADIOL OGY REPORT [place] 1964 Tristan [place] [id number]+ [place]AM: [place] [address]+ , FLUORO GUIDE FOR SPINE [address]+ CLINIC AL INDICA TION: CAUDAL NORI FINDIN GS: C-arm fluoro scopy was perfor med by Dr. Mae . 5 second s of fluoro scopy time was used. Please see operat cesar report for detail s of the proced ure. IMPRES FLAKITO: C-arm fluoro scopy perfor med, please see operat cesar note for detail s. Electr onical ly Signed in Woods cribe By Sony Solomon nd, MD [address], MD Radiol ogist IATR 1125 21 0.11 CC: Other Provid er: ; Sonia Mae MD, Kalya n MD Vorder strass e, Tric ia MD Distri bute to: //name // //add1 // //add3 // //add2 // Author chuy gabriel #: Ins. Group #: [id number] Ins. Group Name: [employer]BR[employer] LOOMIS Ins. Policy #: [id number] [facility] [address] [place] [address], [place], [address], 09/13/2015 04:00:16 12/23/19 14 12/21/2013 radio logy repor t Locati on: [facility] RADIOL OGY DEPART [address] RADIOL OGY [phone] [place]. [address] FAX: [phone] ___ [place]RELLA [place] 0319-0 068 OR [id number] 1531 Sonia Mae MD F OBSV: Other Provid er: ; [id number] 91 LUMBAR TPI/ CAUDAL NORI FLUORO GUIDE FOR SPINE [address]+ CAUDAL NORI RADIOL OGY REPORT [place]LL[place] 1964 Tristan Mae MD FLUORO GUIDE FOR SPINE [address]+ [place]: [place] [id number]+ , FLUORO GUIDE FOR SPINE 87378+ CLINIC AL INDICA TION: CAUDAL NORI FINDIN GS: C-arm fluoro scopy was perfor med by Dr. Mae . 5 second s of fluoro scopy time was used. Please see operat cesar report for detail s of the proced ure. IMPRES FLAKITO: C-arm fluoro scopy perfor med, please see operat cesar note for detail s. Electr onical ly Signed in Woods cribe By Sony Solomon nd, MD [address], MD Radiol ogist IATR 1125 21 0.11 CC: Other Provid er: ; Sonia Mae MD, Kalya n MD Vorder strass e, Tric ia MD Distri bute to: //name // //add1 // //add3 // //add2 // Author vasubeatrizmartir gabriel #: Ins. Group #: [id number] Ins. Group Name: [employer]BARA LOOMIS Ins. Policy #: [id number] [facility] [address] [place], [place] [address], [address], 09/13/2015 04:00:16 10/20/19 16 07/31/2010 imagi ng/rey rodasos tic resul t No observ ation record ed. [email or web address] Not Available 2015 14:29:45 Result Notes None recorded. Problems Name Problem SNOMED Code Status Onset Date Resolution Date Notes Provider Name and Address Organization Details Recorded Time Increased frequency of urination 866855605 Active Not Available [facility] 3 03:06:39 Urgent desire to urinate 90700510 Active Not Available [facility] 3 03:06:39 Urge incontinence of urine 79359363 Active Rafael Carrillo MD [address] [place], [place] [address] [place], [address] , [facility] 4 14:13:22 Pain Active Not Available [facility] 3 03:06:39 Menstruation finding Active Not Available [facility] 3 03:06:39 Blood in urine 59895247 Active Rafael Carrillo MD [address] [place] [address] [place], [address] , [facility] 4 14:13:22 Lumbar post-laminect clayton syndrome 801173609 Active Tristan Mae MD [address] [place] [address] [place], [address] , [facility] 4 10:46:47 Chronic pain syndrome [id number] Hodan Mae MD [address] [place] [address] [place], [address] , [facility] 4 10:46:47 Lumbar radiculopathy [id number] Hodan Mae MD [address] [place] [address] [place], [address] , [facility] 4 10:46:47 Arthropathy of lumbar facet joint [id number] Hodan Mae MD [address] [place] [address] [place], [address] , [facility] 4 10:46:47 Degeneration of lumbar intervertebra l disc [id number] Hodan Mae MD [address] [place] [address] [place], [address] , [facility] 4 10:46:47 Myofascial pain [id number] Hodan Mae MD [address] [place] [address] [place], [address] , [facility] 4 10:46:47 Problem Notes None recorded. Procedures Surgical History Date Name Laterality Status Provider Name and Address Organization Details Recorded Time 025 Colonoscopy w/lesion removal completed Catarina Larios [facility] 12/08/2024 15:37:09 021 Colonoscopy w/lesion removal completed Catarina Larios [facility] 09/24/2021 15:07:50 012 LAPAROSCOPICALLY ASSISTED VAGINAL HYSTERECTOMY (SURG) completed Not Available [facility] 04/30/2013 04:06:21 012 Hysteroscopy with Endometrial Biopsy or IUD Removal completed Wojciech Aguilar MD [address] [place], [place] [address], [address], [facility] 11/14/2011 12:03:32 010 Cystourethroscopy completed Not Available [facility] 08/21/2011 06:32:29 010 CYSTOSCOPY (SURG) completed Not Available [facility] 04/30/2013 03:24:56 995 hernia repair completed Not Available [facility] 08/21/2011 06:32:29 section completed Kajal Zavaleta CMA [facility] 10/18/2011 09:04:20 CYSTOSCOPY (SURG) completed Not Available [facility] 04/30/2013 03:24:27 Imaging Results None recorded. Procedure Notes None recorded. Medical Equipment None Reported. Allergies Allergen ID Allergen Name Allergen Category Reaction Reaction Severity Criticality Documentation Date Start Date Code Code System Note Provider Name and Address Organization Details Recorded Time morphine medicatio n itching Not available Not available 07/26/2010 7052 RxNorm muscl e pain Not Available [facility] 06:32:06 76697 Lipitor medicatio n Not available Not available Not available 07/26/2010 [id number] RxNorm Not Available [facility] 06:32:06 Medications Name Sig Start Date Stop Date Status Note LastModified by Organization Details LastModified Time cyclobenza lionel 10 mg tablet TAKE 1 TABLET BY MOUTH THREE TIMES A DAY active Not Available Not Available No t Available medroxypro gesterone 10 mg tablet Take 1 tablet every day by oral route for 12 days. active Not Available Not Available No t Available buspirone 5 mg tablet active Not Available Not Available Not Available hydrocodon e 7.5 mg-ibuprof en 200 mg tablet Take 1 tablet every 4 hours by oral route. active Not Available Not Available No t Available neomycin-p olymyxin-h ydrocort 3.5 mg/mL-10,0 00 unit/mL-1 % ear solution active Not Available Not Available Not Available prednisone 10 mg tablet TAKE 4 TAB BY MOUTH DAILY X 3 DAYS, 3 TAB DAILY X 3 DAYS, 2 TAB DAILY X 3 DAYS, 1 TAB DAILY X 3 DAYS active Not Available Not Available No t Available gabapentin 600 mg tablet active Not Available Not Available Not Available ropinirole 1 mg tablet active 1mg QD Not Available Not Available Not Available citalopram 40 mg tablet 60mg QD active Not Available Not Available Not Available trazodone 50 mg tablet TAKE 1/2-1 TABLET BY MOUTH AT BEDTIME active Not Available Not Available No t Available oxybutynin chloride ER 10 mg tablet,ext ended release 24 hr Take 1 tablet every day by oral route for 30 days. active Not Available Not Available No t Available azithromyc in 250 mg tablet active Not Available Not Available Not Available Synthroid 150 mcg tablet 175 mcg active Not Available Not Available Not Available prednisone 20 mg tablet TAKE 2 TABLETS BY MOUTH ONCE A DAY X 3 DAYS active Not Available Not Available No t Available Synthroid 100 mcg tablet active Not Available Not Available Not Available penicillin V potassium 500 mg tablet active Not Available Not Available Not Available topiramate 25 mg tablet active Not Available Not Available Not Available ciprofloxa geraldine 500 mg tablet active Not Available Not Available Not Available Synthroid 175 mcg tablet active Not Available Not Available Not Available citalopram 20 mg tablet active Not Available Not Available Not Available ropinirole 0.25 mg tablet active Not Available Not Available Not Available diazepam 2 mg tablet TAKE 1 TABLET BY MOUTH EVERY DAY NEEDED active Not Available Not Available No t Available baclofen 10 mg tablet TAKE 1 TABLET BY MOUTH TWICE A DAY NEEDED FOR BACK PAIN active Not Available Not Available No t Available ropinirole 2 mg tablet active Not Available Not Available Not Available erythromyc in 5 mg/gram (0.5 %) eye ointment active Not Available Not Available Not Available venlafaxin e 37.5 mg tablet active Not Available Not Available Not Available levothyrox ine 125 mcg tablet TAKE 1 TABLET BY MOUTH EVERY DAY active Not Available Not Available No t Available ropinirole 0.5 mg tablet active Not Available Not Available Not Available hydrocodon e 7.5 mg-acetami nophen 750 mg tablet active Not Available Not Available No t Available lidocaine 5 % topical patch active Not Available Not Available Not Available polymyxin B sulfate 10,000 unit-trime thoprim 1 mg/mL eye drops active Not Available Not Available Not Available hydrochlor othiazide 12.5 mg capsule active Not Available Not Available Not Available gabapentin 300 mg capsule active Not Available Not Available Not Available lidocaine HCl 2 % mucosal solution active Not Available Not Available Not Available cephalexin 500 mg tablet active Not Available Not Available Not Available hydrocodon e 5 mg-acetami nophen 500 mg tablet active Not Available Not Available No t Available hydrochlor othiazide 25 mg tablet TAKE 1 TABLET BY MOUTH EVERY DAY active Not Available Not Available No t Available mupirocin 2 % topical ointment active Not Available Not Available Not Available gabapentin 100 mg capsule TID active Not Available Not Available Not Available methylpred nisolone 4 mg tablets in a dose pack TAKE 6 TABLETS ON DAY 1 DIRECTED ON PACKAGE AND DECREASE BY 1 TAB EACH DAY FOR A TOTAL OF 6 DAYS active Not Available Not Available No t Available Percocet 5 mg-325 mg tablet Take 1 tablet every 4-6 hours by oral route as needed. 2011 active After printing Rx, pt seen in hospital and declined Rx, stating she gets nauseated on Percocet. She states her Rx for Vicodin/a nd then Vicoprofe n will suffice for her postop pain control. Rx destroyed . Not Available Not Available Not Available diazepam 5 mg tablet Take 1 tablet twice a day by oral route. active Not Available Not Available No t Available levothyrox ine 112 mcg tablet TAKE 1 TABLET BY MOUTH EVERY DAY active Not Available Not Available No t Available Synthroid 137 mcg tablet active Not Available Not Available Not Available rosuvastat in 5 mg tablet 10mg tab active Not Available Not Available Not Available rosuvastat in 10 mg tablet TAKE 1 TABLET BY MOUTH EVERY DAY active Not Available Not Available No t Available bupropion HCl XL 150 mg 24 hr tablet, extended release TAKE 1 TABLET BY MOUTH EVERY DAY active Not Available Not Available No t Available acamprosat e 333 mg tablet,del ayed release TAKE 1 TABLET BY MOUTH THREE TIMES DAILY active Not Available Not Available No t Available duloxetine 30 mg capsule,de layed release TAKE 1 CAPSULE BY MOUTH EVERY DAY TAKE WITH THE 60MG active Not Available Not Available No t Available duloxetine 60 mg capsule,de layed release TAKE 1 CAPSULE BY MOUTH EVERY DAY active Not Available Not Available No t Available Vesicare 5 mg tablet active Not Available Not Available No t Available Enablex 7.5 mg tablet,ext ended release active Not Available Not Available Not Available calcium active Not Available Not Avail able Not Available multivitam in active Not Available Not Available Not Available FREDERIC (28) 3 mg-0.02 mg tablet active Not Available Not Available Not Available MoviPrep 100 gram-7.5 gram-2.691 gram oral powder packet active Not Available Not Available Not Available calcium 600 mg (as carbonate) -vitamin D3 10 mcg (400 unit) tablet TAKE 1 TABLET BY MOUTH TWICE A DAY active Not Available Not Available No t Available hydrocodon e 10 mg-ibuprof en 200 mg tablet active Not Available Not Available Not Available buprenorph ine 5 mcg/hour weekly transderma l patch APPLY 1 PATCH TO SKIN WEEKLY (IN ADDITION TO 10MCG PATCH) active Not Available Not Available No t Available buprenorph ine 10 mcg/hour weekly transderma l patch APPLY 1 PATCH WEEKLY active Not Available Not Available No t Available Fluzone 1002-4849( PF) 45 mcg (15 mcg x 3)/0.5 mL intramuscu lar syringe active Not Available Not Available Not Available buprenorph ine 15 mcg/hour weekly transderma l patch APPLY 1 PATCH ONCE A WEEK active Not Available Not Available No t Available Vitals Date Recorded Body height Body weight Body mass index (BMI) Body temperature Heart rate Systolic And Diastolic Provider Name and Address Organization Details Last Updated DateTime 4 163.83 cm 96531.3 50492 g 33 kg/m2 98.2 [degF] 102 /min 128/77 mm[Hg] Corrine tran [facility] 4 13:47:35 Date Recorded Body height Body weight Body mass index (BMI) Body temperature Heart rate Systolic And Diastolic Provider Name and Address Organization Details Last Updated DateTime 4 162.56 cm 02027.6 9689 g 33.8 kg/m2 98.2 [degF] 90 /min 140/86 mm[Hg] Wojciech Etienne [facility] 4 09:43:58 Date Recorded Body temperature Oxygen saturation Oxygen saturation in Arterial blood by Pulse oximetry Heart rate Systolic And Diastolic Provider Name and Address Organization Details Last Updated DateTime 5 98.5 [degF] 98 % 98 % 118 /min 160/80 mm[Hg] HECTOR Quick [facility] 5 13:29:12 Date Recorded Heart rate Oxygen saturation Oxygen saturation in Arterial blood by Pulse oximetry Body temperature Systolic And Diastolic Provider Name and Address Organization Details Last Updated DateTime 0 92 /min 99 % 99 % 99.5 [degF] 140/90 mm[Hg] SIGRID AVALOS [address] [place], [address], [facility] 0 10:33:24 Date Recorded Body weight Provider Name an d Address Organization Details Last Updated DateTime 05/23/2020 12109.89 g Ruthie benedict, [facility] 05/23/2020 10:07:16 Social History Question Answer Notes LastModified by Organizat ion Details LastModified Time Tobacco Smoking Status Current Every Day Smoker belinda Carrillo MD [address] [place] [address], [address], [facility] 07/26/2010 15:43:50 Education 12 Information no t available 12/07/2013 Work Status Off Work Since: Information not available 12/07/2013 Living Situation With Spouse Informa tion not available 12/07/2013 Disabled? If Yes, How Long? Yes Information not available 12/07/2013 An Cloth Mercerizer Back Tender Involved? If Yes, Who? No Information not available 12/07/2013 Alcohol Use Yes Information n ot available 12/07/2013 Do You Currently Or Have You Ever Used Recreational Drugs? If Yes, Specify No Information not available 12/07/2013 Any Addiction Or Substance/drug/a lcohol Abuse Issues? If Yes, Specify No Information not available 12/07/2013 Special Diet No Information not available 08/21/2011 Pain Contract/Control led Substances N/A Information not available 12/07/2013 Marital Status Information not available 08/21/2011 Are You Sexually Active? Yes Less-prostate Issues adamour Information not available 10/18/2011 Sex: Unknown Functional Status Question Answer Note LastModified by Organizat ion Details LastModified Time What is your level of alcohol consumption? 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 Family History Relationship Description Onset Age of this Age Resolved Age Notes LastModified by Organization Details LastModified Time Mother Malignant neoplastic disease farhat r (previ ously record ed as cancer -other ) [id number] [id number] Not available 07/06/2013 03:01:07 Mother Kidney disease [id number] [id number] Not available 07/06/2013 03:01:07 Sister Disorder of thyroid gland previo usly record ed as thyroi d diseas e [id number] [id number] Not available 07/06/2013 03:01:07 Father Malignant neoplastic disease oral (previ ously record ed as cancer -other ) [id number] [id number] Not available 07/06/2013 03:01:07 Medical History Condition Response cancer N HIV or AIDS N arthritis N asthma N glaucoma N ulcers N taking blood thinners N depression Y high blood pressure N kidney disease N other GI illness N GERD / reflux N liver disease N psychiatric illness N arrhythmia N diabetes N emphysema / COPD N heart disease N heart attack N seizures N anesthesia allergy/complications N skin condition N other N thyroid disease or other endocrine probl ems Y headaches or migraines N bleeding disorders N stroke N Gynecological History Statement/Question Response 09/12/2011 Contraception Vasectomy Para 2 Living children 2 Obstetrics History GPAL:G 0 P 0 0 0 0 Immunizations Vaccine Type Date Status Note Provider Nam e and Address Organization Details Recorded Time Influenza, recombinant, quadrivalent, PF 0 completed Sofia Jones MD [address] [place], [place] [address] [place], [address], [facility] 01/29/2025 22:00:08 zoster recombinant 0 completed Sofia Jones MD [address] [place], [place] [address] [place], [address], [facility] 01/29/2025 22:00:08 MMR 0 completed Sofia Jones MD [address] [place] [address] [place], [address], [facility] 01/29/2025 22:00:08 MMR 9 completed Sofia Jones MD [address] [place] [address] [place], [address], [facility] 01/29/2025 22:00:08 COVID-19, mRNA, LNP-S, PF, 100 mcg/0.5mL dose or 50 mcg/0.25mL dose 1 completed Sofia Jones MD [address] [place] [address] [place], [phone], [facility] 01/29/2025 22:00:08 COVID-19, mRNA, LNP-S, PF, 100 mcg/0.5mL dose or 50 mcg/0.25mL dose 1 completed Sofia Jones MD [address] [place] [address] [place], [address], [facility] 01/29/2025 22:00:08 COVID-19, mRNA, LNP-S, PF, 30 mcg/0.3 mL dose 2 completed Sofia Jones MD [address] [place] [address] [place], [address], [facility] 01/29/2025 22:00:08 COVID-19, mRNA, LNP-S, PF, 30 mcg/0.3 mL dose, marcelino-sucrose 2 completed Sofia Jones MD [address] [place] [address] [place], [address], [facility] 01/29/2025 22:00:08 COVID-19, mRNA, LNP-S, bivalent, PF, 30 mcg/0.3 mL dose 2 completed Sofia Jones MD [address] [place] [address] [place], [address], [facility] 01/29/2025 22:00:08 COVID-19, mRNA, LNP-S, PF, 50 mcg/0.5 mL 4 completed Sofia Jones MD [address] [place], [place] [address], [address], [facility] 01/29/2025 22:00:08 COVID-19, mRNA, LNP-S, PF, 50 mcg/0.5 mL 4 completed Sofia Jones MD [address] [place], [place] [address], [address], [facility] 01/29/2025 22:00:08 Tdap 4 completed Sofia Jones MD [address] [place] [address] [place], [address], [facility] 01/29/2025 22:00:08 varicella 0 completed Sofia Jones MD [address] [place] [address] [place], [address], [facility] 01/29/2025 22:00:08 varicella 9 completed Sofia Jones MD [address] [place] [address] [place], [address], [facility] 01/29/2025 22:00:08 Influenza, split virus, trivalent, PF 5 completed Sofia Jones MD [address] [place] [address] [place], [address], [facility] 01/29/2025 22:00:08 Hep B, adult 0 completed Sofia Jones MD [address] [place] [address] [place], [address], [facility] 01/29/2025 22:00:08 Hep B, adult 9 completed Sofia Jones MD [address] [place] [address] [place], [address], [facility] 01/29/2025 22:00:08 Influenza, split virus, quadrivalent, PF 1 completed Sofia Jones MD [address] [place] [address] [place], [address], [facility] 01/29/2025 22:00:08 Influenza, split virus, quadrivalent, PF 3 completed Sofia Jones MD [address] [place] [address] [place], [address], [facility] 01/29/2025 22:00:08 Influenza, recombinant, trivalent, PF 4 completed Sofai Jones MD [address] [facility], [place], [address], [facility] 01/29/2025 22:00:08 Past Encounters Encounter ID Performer Location Encounter Start Date Encounter Closed Date Diagnosis/Indication Diagnosis SNOMED-CT Code Diagnosis ICD10 Code Diagnosis IMO Codes Diagnosis Note [id number] Rafael Carrillo MD [facility] [address] [place] [address] [address] [place] [address] 07/26/2010 14:37:08 07/26/2010 15:57:33 [id number] Rafael Carrillo MD [facility] [address] [place] [address] [address] [place] [address] 06/06/2011 07:59:19 06/06/2011 09:15:26 [id number] Wojciech Aguilar MD [facility] [place] [address] [place] [address] 10/18/2011 08:42:12 10/18/2011 09:34:58 [id number] Wojciech Aguilar MD [facility] [address] [place] [address] 11/14/2011 11:11:50 11/14/2011 12:03:11 [id number] Wojciech Aguilar MD [facility] [address] [place] [address] 12/03/2011 12:44:36 12/03/2011 13:15:08 [id number] Wojciech Aguilar MD [facility] [address] [place] [address] 12/16/2011 15:13:20 12/16/2011 16:23:39 [id number] Wojciech Aguilar MD [facility] [address] [place] [address] 03/26/2012 10:18:03 03/26/2012 11:13:39 [id number] Wojciech Aguilar MD [facility] [address] [place] [address] 04/27/2012 09:29:45 04/27/2012 10:33:00 [id number] Wojciech Aguilar MD [facility] [address], [address] [place] [address] 05/22/2012 13:05:35 05/25/2012 09:53:07 [id number] Wojciech Aguilar MD [facility] for [address] [place] [address] 06/19/2012 13:01:05 06/19/2012 14:42:31 [id number] Rafael Carrillo MD [facility] [address] [place] [address] [address] [place] [address] 10/15/2013 13:14:42 10/24/2013 18:28:33 Blood in urine [id number] cystoscopy is planned Urge incon tinence of urine [id number] [facility] [id number] Tristan Mae MD [facility] [address] [place] [address] [place] [address] 12/07/2013 09:17:06 12/07/2013 10:42:48 Lumbar post-laminectomy syndrome 022946292 Chronic pain syndrome 754334249 Lumbar radiculopathy 922170228 Arthropath y of lumbar facet joint 169220566 Degenerati on of lumbar intervertebral disc 42760753 Myofascial pain 840130543 [id number] 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 [address] [place] [address] 08/30/2019 09:24:54 08/30/2019 10:24:13 [id number] SIGRID Da Silva Occupatio nal Medicine [address] [place] [address] 09/01/2019 09:35:48 09/01/2019 10:19:55 [id number] 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 Signs and symptoms discussed with patient. Patient educated to self isolate in a room in their home away from others they live with. Mask if available. Patient advised not to leave house for any reason. Self treatment discussed including tylenol for fever, pain or myalgia; cough cold medication s for symptoms. Patient to check temperatur e daily. Monitor for symptoms of respirator y distress. To check in with PCP via phone with change in symptoms. Nature of disease to cause severe respirator y distress discussed. If needs emergent care to notify EMS or ED or PCP office that they may have COVID to allow for proper PPE and isolation. Acute pharyngitis 019311 003 J02.9 Pt presents with sore throat, cough, body aches -Vitals stable, lungs CTA b/l, erythemato us throat -Screen for strep and COVID Rapid strep negative, culture pending. Likely viral cause. Supportive care with rest, fluids, salt water gargles, Ibuprofen/ Tylenol PRN. Follow-up in 2-3 days if not improving or sooner if worsening. [id number] SIGRID Whitfield [facility] [address] [place] [address] 01/29/2025 13:24:08 01/29/2025 13:44:57 Sciatica 56601060 M54.31 [id number] Sciatica without low back pain has responded well to Medrol Dosepak in the past prescripti on below see additional informatio n provided Health Concerns Section Related Observation LastModified by Organization Detai ls LastModified Time None Recorded Concern Status LastModified by Organization Details LastModified Time None Recorded Advance Directives Directive None Recorded Payers Insurance Date Sequence Insurance Name Policy Number Policy Pool Covered Member ID Pool Member ID Guarantor Name 05/21/2014 1 [facility] PREFERRED PLAN (PPO) [id number] Kevin Holley [id number] Mirella Holley 05/21/2014 1 [facility] ([place] [id number] Kevin Holley [id number] Mirella Holley 07/27/2021 1 [facility] - OPEN ACCESS PLUS [id number] Kevin Holley [id number] Mirella Holley 05/21/2014 1 [employer] (O) [id number] Kevin Holley [id number] Mirella Holley 01/29/2025 1 [facility] PLAN (MEDICARE REPLACEMENT HMO) Mirella Holley [id number] Mirella Holley 01/29/2025 1 MEDICARE [place]: [facility] [employer] Mirella Holley [id number] Mirella Holley 01/29/2025 [facility] Mirella Holley [facility] Mirella Holley Notes Date Note Type Note Provider Name and Address Organization Details Recorded Time 2 text/html ROS as noted in the HPI Six week Post-Op Visit Reported by patient. Onset/Timing: date of surgery: (05/11/2012) Quality: procedure:Laparoscopic Assisted Total Vaginal Hysterectomy without Bilateral Salpingoophorectomy Context: reason for procedure: (Menometrorrhagia.); operative findings: ( Normal ovaries which were preserved. Normal appearing uterus.); operative complications: (none); postoperative complications: (none); pathology findings: (Secretory endometrium. - Superficial adenomyosis. - Unremarkable cervix.) Associated Symptoms: incision healing well; no fatigue; normal appetite; normal bowel function; no constipation; no nausea; no emesis; pain improving; no pain; no fever; no bleeding; no lower extremity edema/pain; no dysuria/urinary symptoms. Hot flashes- has used Black Cohosh in past. Notes: On usual analgesics. Wojciech Aguilar MD [address] [place] [address], [address], [facility] 06/19/2012 14:03:44 4 text/html HematuriaReported bypatient.Quality:micros copic Duration:intermittent Onset/Timing:recurring Severity:no pain Context:smoker her mother had bladder cancer Alleviating Factors:no treatment Aggravating Factors:no treatment Previous Surgery:none Prior Studies:CT scan Associated Symptoms:no abdominal pain; no back pain; no groin pain; no chills; no constipation; no diarrhea; no dribbling; no dysuria; complete emptying; no frequency; no hematuria; no nausea; no nocturia; no odor; no straining stream; no stress incontinence; no temperature; no urgency; no urge incontinence; no vomiting; no weight loss; no pneumaturia Rafael Carrillo MD [address] [place] [address], [place], [address], [facility] 10/15/2013 14:13:56 4 text/html Pain Management: New PatientReported bypatient.What caused your pain?surgery ([facility]- 2010, LUMBAR DISKECTOMY -2007 X 2) Location:lower back, bilat entire LE How long have you had this pain?7 years How long does your pain last?continuous Described your pain:shooting; cramping; exhausting Your HIGHEST pain intensity over the Past Week:10 Your LOWEST pain intensity over the Past Week:4 Your USUAL pain intensity over the Past Week:6 Your PAIN scale Today:5 Makes pain better?nothing Makes pain worse?sitting; lying down; standing; driving; walking; bending Interferes with activities:general activity: 9; mood: 5; walking ability: 9; relationships with other people: 5; sleep: 5; enjoyment of life: 10 Prior tests?x-rays; MRI (FINDINGS: Comparison is made with x-rays on 2012. There are bilateral pedicle screws plus a single vertical screw through the vertebral bodies of L5 and S1. These produce moderate metallic artifact limiting evaluation. Alignment is normal. Conus ends at T12-L1. Benign-appearing hemangioma is superior left L3. L1-2 is within normal limits. L2-3 shows minimal broad-based disc bulge without mass effect or stenosis L3-4 is within normal limits. 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 L5 and L5-S1 levels are suboptimally visualized due to the metallic artifact especially the left L5 nerve root. The right one appears normal. IMPRESSION: Moderate metallic artifact at L5 and L5-S1, also the left L5 nerve root, limiting evaluation. No definite disc herniations or stenosis. Electronically Signed in PowerScribe By Mirella Harper MD ____ 08/30/13); discogram Conditions associated with your pain?balance problems; muscle weakness (right drop foot); difficulty walking; numbness / tingling / pins/ needles (right leg numb from knee down) Prior treatments?physical therapy; psychologist; injection(s) (7 years ago before surgery did not help) Prior medications you've tried?vicoprofin, flexeril, neurontin Tristan Mae MD [address] [place], [address], [facility] 12/07/2013 10:47:05 0 text/html Pt is a 55 y F who presents today who spoke with Dr dwyer office - sent for covid - sore throat, headache, nausea, body aches -not empl. Pt presents with a few days of sore throat, dry cough and body aches along with frontal headache and intermittent nausea. She denies trouble or pain with swallowing. She denies sob, cp, wheezing. The body aches are all over. She has not taken anything for them. She reports the headache to be frontal. Denies vision changes/dizziness. She denies fever/chills, ear pain/pressure, abdominal pain, loss of taste/smell. She reports intermittent non bloody diarrhea. 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 Rudi Seymour III, MD [address] [place] [address], [phone], [facility] 05/25/2020 06:16:20 5 text/html ROS as noted in the HPI Pt presents in office today for rt leg pain. pt has excruciating pain going down left leg . was seen couple months ago she was put on 3 day course if steroids -mb Patient presents with pain shooting from right buttock down to left foot mostly outer side of the past 3 to 4 days. States the only thing she did different was went for a very long walk also was doing some light yard work no specific injury. She has had the same pain in the past right leg a few months ago responded with course of steroids. etpac Sofia Jones MD [address] [place], [address], [facility] 01/29/2025 22:06:02 OBGyn Episode No OBEpisode recorded.
--- OUTSIDE RECORDS SUMMARY | 2025-07-28 18:09 | XMS_ITS | Clinical Summary ---
Author Organization [facility] Address [address] [place] [address] Care Team Providers Care Tube Handler Name Role Phone Unavailable Primary Care Provider [...] of 2) 2015 COVID-19 Vaccine ( - 2024-2 6 season) 2025 Influenza (#1) 2025 RSV (1 [...]
--- OUTSIDE RECORDS SUMMARY | 2025-07-28 18:09 | XMS_ITS | Clinical Summary ---
Author Organization [facility] Address [address] [place] [address] Care Team Providers Care Stockroom Coordinator Name Role Phone Toma Fuentes MD Primary [...] D[employer] of Health Vandana ual Screening 10/06/2024 COVID-19 Vaccine (8 - 2024-2 6 season) 2025 07/21/2024, 12/02/2023, 08/22/2022, Additional history exists Influenza Vaccine (#1) 2025 , 08/25/2023, 07/10/2021, Additional history exists DTaP,Tdap,and Td Vaccines (2 - Td or Tdap) 12/02/2033 12/02/2023 Colon Cancer Screening 11/16/2034 Colonoscopy 11/16/2034 11/16/2024, 08/20/2021 RSV Vaccine (60+ years old a nd patients) (1 - 1-dose 75+ series) 2040 Insurance [facility] Care Teams Stockroom Coordinator Relationship Specialty Start Date End Date Toma Fuentes MD [address] [place] [address] [facility] - General 04/24/17
--- OUTSIDE RECORDS SUMMARY | 2025-07-28 18:09 | XMS_ITS | Data Portability ---
Author Organization [facility], [employer] - [facility] Address [address] [place] [address] Care Team Providers Care Mirror Silverer Name Role Phone CHRISTINA DWYER Primary Care Provider [phone] CHRISTINA DWYER Referring Provider Assessment No assessment recorded. Plan of Treatment Reminders Order Date Submit Date Provider Last Modified By Organization Details Last Modified Time Details Appointments None recorded. Lab PPD (purified protein derivative) , skin test 2018 019 [email or web address] [facility], [address] [place] [address], [address], 9 10:29:19 Referral None recorded. Procedures None recorded. Surgeries None recorded. Imaging None recorded. Medication Orders tuberculin PPD 5 tub. unit/0.1 mL intradermal injection solution 2018 019 [email or web address] Not available 9 12:11:35 Patient TargetsNo targets recorded. Patient InstructionsNo instructions recorded. Reason for Referral None Reported. Results Created Date Observation Date Name Description Value Unit Range Abnormal Flag Note LastModifiedBy Organization Detail LastModifiedTime 09/01/20 19 09/01/2019 PPD (flor fied prote in deriv ative ), skin test Result negati ve Not Available [address], [address], 09/01/2019 09:41:10 Result Notes None recorded. Medical Equipment None Reported. Medications Name Sig Start Date Stop Date Status Note LastModified by Organization Details LastModified Time cyclobenzapr ine 10 mg tablet TAKE 1 TABLET BY MOUTH THREE TIMES A DAY active Not Available Not Available Not Available buspirone 5 mg tablet active Not Available Not Available No t Available tuberculin PPD 5 tub. unit/0.1 mL intradermal injection solution Inject 0.1 mL every day by intradermal route for 1 day. 2018 active Not Available Not Available Not Avai lable prednisone 10 mg tablet TAKE 4 TAB BY MOUTH DAILY X 3 DAYS, 3 TAB DAILY X 3 DAYS, 2 TAB DAILY X 3 DAYS, 1 TAB DAILY X 3 DAYS active Not Available Not Available No t Available citalopram 40 mg tablet active Not Available Not Available Not Available trazodone 50 mg tablet TAKE 1/2-1 TABLET BY MOUTH AT BEDTIME active Not Available Not Available No t Available prednisone 20 mg tablet TAKE 2 [...] Not Available Not Available No t Available levothyroxin e 125 mcg tablet TAKE 1 TABLET BY MOUTH EVERY DAY active Not Available Not Available No t Available hydrochlorot hiazide 12.5 mg capsule active Not Available Not Available N ot Available cephalexin 500 mg tablet active Not Available Not Available Not Available hydrochlorot hiazide 25 mg tablet TAKE 1 TABLET BY MOUTH EVERY DAY active Not Available Not Available No t Available methylpredni solone 4 mg tablets in a dose pack TAKE 6 TABLETS ON DAY 1 DIRECTED ON PACKAGE AND DECREASE BY 1 TAB EACH DAY FOR A TOTAL OF 6 DAYS active Not Available Not Available No t Available diazepam 5 mg tablet active Not Available Not Available No t Available levothyroxin e 112 mcg tablet TAKE 1 TABLET BY MOUTH EVERY DAY active Not Available Not Available No t Available Synthroid 137 mcg tablet active Not Available Not Available Not Available rosuvastatin 5 mg tablet active Not Available Not Available Not Available rosuvastatin 10 mg tablet TAKE 1 TABLET BY MOUTH EVERY DAY active Not Available Not Available No t Available bupropion HCl XL 150 mg 24 hr tablet, extended release TAKE 1 TABLET BY MOUTH EVERY DAY active Not Available Not Available No t Available acamprosate 333 mg tablet,delay ed release TAKE 1 TABLET BY MOUTH THREE TIMES DAILY active Not Available Not Available Not Available duloxetine 30 mg capsule,prasad yed release TAKE 1 CAPSULE BY MOUTH EVERY DAY TAKE WITH THE 60MG active Not Available Not Available No t Available duloxetine 60 mg capsule,prasad yed release TAKE 1 CAPSULE BY MOUTH EVERY DAY active Not Available Not Available No t Available calcium 600 mg (as carbonate)-v itamin D3 10 mcg (400 unit) tablet TAKE 1 TABLET BY MOUTH TWICE A DAY active Not Available Not Available No t Available buprenorphin e 5 mcg/hour weekly transdermal patch APPLY 1 PATCH TO SKIN WEEKLY (IN ADDITION TO 10MCG PATCH) active Not Available Not Available No t Available buprenorphin e 10 mcg/hour weekly transdermal patch APPLY 1 PATCH WEEKLY active Not Available Not Available No t Available buprenorphin e 15 mcg/hour weekly transdermal patch APPLY 1 PATCH ONCE A WEEK active Not Available Not Available No t Available Vitals None Recorded Social History None recorded. Functional Status Question Answer Note LastModified by Organizat ion Details LastModified Time What is your occupation? [employer] [place] [address] Information not available 08/26/2019 Mental Status None recorded. Family History Nothing Reported. Medical History No medical history recorded. Gynecological HistoryNo gynecological history recorded. Obstetrics History GPAL:G 0 P 0 0 0 0 Immunizations Vaccine Type Date Status Note Provider Nam e and Address Organization Details Recorded Time Hep B, adult 08/30/2019 completed Not Available [facility] 10/23/2019 02:23:03 MMR 08/30/2019 completed Not Available [facility] 10/23/2019 02:14:55 varicella 08/30/2019 completed Not Available [facility] 10/23/2019 02:23:20 Hep B, adult 10/18/2019 completed Not Available [facility] 10/23/2019 02:23:03 varicella 10/18/2019 completed Not Available [facility] 10/23/2019 02:23:22 MMR 10/18/2019 completed Not Available [facility] 10/23/2019 02:14:55 Past Encounters Encounter ID Performer Location Encounter Start Date Encounter Closed Date Diagnosis/Indication Diagnosis SNOMED-CT Code Diagnosis ICD10 Code Diagnosis IMO Codes Diagnosis Note [id number] Rafael Carrillo MD [place] [address] [address] [address] 07/26/2010 14:37:08 07/26/2010 15:57:33 [id number] Rafael Carrillo MD [facility] [address] [place] [address] [place] [address] 06/06/2011 07:59:19 06/06/2011 09:15:26 [id number] Wojciech Aguilar MD [facility] [address] [place] [address], [facility] [place] [address] 10/18/2011 08:42:12 10/18/2011 09:34:58 [id number] Wojciech Aguilar MD [facility] [address] [place] [address], [facility] [place] [address] 11/14/2011 11:11:50 11/14/2011 12:03:11 [id number] Wojciech Aguilar MD [facility] [address] [place] [address], [facility] [place] [address] 12/03/2011 12:44:36 12/03/2011 13:15:08 [id number] Wojciech Aguilar MD [facility] [address] [place] [address], [facility] [place] [address] 12/16/2011 15:13:20 12/16/2011 16:23:39 [id number] Wojciech Aguilar MD [facility] [address] [place] [address] [place] [address] 03/26/2012 10:18:03 03/26/2012 11:13:39 [id number] Wojciech Aguilar MD [facility] [address] [place] [address], [facility] [place] [address] 04/27/2012 09:29:45 04/27/2012 10:33:00 [id number] Wojciech Aguilar MD [facility] [address] [place] [address], [facility] [place] [address] 05/22/2012 13:05:35 05/25/2012 09:53:07 [id number] Wojciech Aguilar MD [facility] [address] [place] [address], [facility] [place] [address] 06/19/2012 13:01:05 06/19/2012 14:42:31 [id number] Rafael Carrillo MD [facility] [address] [place] [address] [place] [address] 10/15/2013 13:14:42 10/24/2013 18:28:33 [id number] Tristan Mae MD [facility] [address] [address] 12/07/2013 09:17:06 12/07/2013 10:42:48 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 Have you ever had a positive TB/PPD/Man toux test? no 2. Have you ever been given BCG? 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[address] [address] 10/18/2019 12:28:38 10/18/2019 13:21:54 Infective hepatitis immunization 865861093 Z23 Dose 2 given in office today Requires v aricella vaccination 680542744 Z28.3 Varicella 2 given today in office Administra tion of measles and mumps and rubella vaccine 70656891 Z23 mmr 2 given in office today [id number] SIGRID AVALOS [facility] [address] [place] [address] 05/23/2020 09:57:37 05/23/2020 10:54:33 [id number] SIGRID [facility] [address] [place] [address] 01/29/2025 13:24:08 01/29/2025 13:44:57 Health Concerns Section Related Observation LastModified by Organization Detai ls LastModified Time None Recorded Concern Status LastModified by Organization Details LastModified Time None Recorded Advance Directives Directive None Recorded Payers Insurance Date Sequence Insurance Name Policy Number Policy Pool Covered Member ID Pool Member ID Guarantor Name 05/21/2014 1 [facility]UE [facility] ELECT PREFERRED PLAN (PPO) [id number] Kevin Holley [id number] Sharonda Holley 05/21/2014 1 [place] [id number] Kevin Holley [id number] Sharonda Holley 07/27/2021 1 [facility] - OPEN ACCESS PLUS [id number] Kevin Holley [id number] Sharonda Holley 05/21/2014 1 [employer] ([place]) [id number] Kevin Holley [id number] Sharonda Holley 01/29/2025 1 [facility] SENIOR PLAN (MEDICARE REPLACEMENT HMO) Sharondamarion Holley [id number] Sharonda Holley 01/29/2025 1 [place] [employer] Sharonda Bennett Leydi [id number] Sharonda Holley 01/29/2025 [facility] Sharonda Holley [facility] Sharonda Holley Notes Date Note Type Note Provider Name and Address Organization Details Recorded Time 08/30/2019 text/html Pt presents to office for PPD implant, Varicella dose 1, MMR dose 1, and Hep B dose 1. 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 SIGRID Da Silva [address] [place], [place] [address]H[place]comb, [phone], [facility] 08/30/2019 12:11:49 09/01/2019 text/html Pt is here today for PPD read. 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 SIGRID Da Silva [address] [place] [address], [phone], [facility] 10/19/2019 10:59:30 OBGyn Episode No OBEpisode recorded.
== END 2025-07-28 15:02 | disposition home or self-care (01) ==
LOC: HO.HNS 14:19
PROVIDERS: PCP Family Medicine; Visit Provider Physician Assistant
DX: M54.16 Radiculopathy, lumbar region (principal)
CPT/HCPCS: 99024

== ENCOUNTER → 2025-07-28 14:19 | Outpatient (BNVA) | payer MEDICARE, SELFPAY | PROVIDERS: PCP Family Medicine; Visit Provider Physician Assistant | DX: M54.16 Radiculopathy, lumbar region (principal); Z98.890 Other specified postprocedural states | CPT/HCPCS: 99212 ==

== ENCOUNTER 2025-09-08 13:36 | Outpatient (AMB) | payer MEDICARE, SELFPAY ==
--- NOTE | 2025-09-08 14:17 | A.SPINEOV_ITS ---
Intake Visit Reasons: 2nd post op Intake Note: Ms. Holley is here today for her 2nd post op. 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 She has been taking Tylenol, Motrin etc. without any relief. She is having a hard time standing walking and sleeping. She feels like it is possible that the cyst has returned. On exam she is uncomfortable, has an antalgic gait, positive straight leg raise at 30 degrees. No focal weakness of the lower extremities. I am going to order an MRI with and without gadolinium of the lumbar spine to rule out recurrent synovial cyst. Mic Gilliam MD, PhD [facility] Orders: Orders MR lumbar spine wo/w con Today M71.38 - Other bursal cyst, other site Coding Level of Care Code Global (56404) Diagnoses Synovial cyst of lumbar facet joint M71.38
== END 2025-09-08 15:03 | disposition home or self-care (01) ==
LOC: HO.HNS 13:36
PROVIDERS: PCP Family Medicine; Visit Provider Physician Assistant
DX: M71.38 Other bursal cyst, other site (principal)
CPT/HCPCS: 99024

== ENCOUNTER → 2025-09-08 13:36 | Outpatient (BNVA) | payer MEDICARE, SELFPAY | PROVIDERS: PCP Family Medicine; Visit Provider Physician Assistant | DX: Z47.89 Encounter for other orthopedic aftercare (principal); M71.38 Other bursal cyst, other site; M79.604 Pain in right leg; Z98.890 Other specified postprocedural states | CPT/HCPCS: 99212 ==

== ENCOUNTER 2025-09-22 08:28 | Outpatient (REF) | payer MEDICARE, SELFPAY ==
--- NOTE | ~2025-09-22 | XR_ITS ---
EXAMINATION: XR LUMBAR SPINE 4 OR MORE VIEWS CLINICAL INFORMATION: M54.16 - Radiculopathy, lumbar region COMPARISON: Radiographs on June 29, 2025 TECHNIQUE: AP and lateral views of the lumbar spine were obtained. Lateral views were obtained in flexion, extension, and neutral positions. FINDINGS: Fusion hardware in the lumbosacral region appears intact. Mild lateral subluxation with L2-3, unchanged. Grade 1 anterolisthesis of L4 on L5, unchanged. No worsening anterolisthesis with flexion or extension. No compression fracture. Prominent marginal osteophytes at L2-L3. Sacroiliac joints are intact. Vascular calcifications. XR/XR lumbar spine 4V min IMPRESSION: No evidence of instability. Electronically signed by: Steve Goodwin MD 09/22/2025 02:20 PM HALIE
--- OUTSIDE RECORDS SUMMARY | 2025-09-23 08:35 | XMS_ITS | Clinical Summary ---
Author Organization [facility] Address [address] [place] [address] Care Team Providers Care Laborer Mine Name Role Phone Toma Fuentes MD Primary [...] 75+ series) 2040 Insurance [facility] Care Teams Laborer Mine Relationship Specialty Start Date End Date Toma Fuentes MD [address] [place] [address] PCP - General 04/24/17
--- OUTSIDE RECORDS SUMMARY | 2025-09-23 08:35 | XMS_ITS | Clinical Summary ---
Author Organization [facility] Address [address] [place] [address] Care Team Providers Care Manager Technical Sales Name Role Phone Unavailable Primary Care Provider [...]
== END 2025-09-22 08:29 | disposition home or self-care (01) ==
LOC: HO.HOSX 08:28
PROVIDERS: Visit Provider Physician Assistant
DX: M54.16 Radiculopathy, lumbar region (principal); M43.16 Spondylolisthesis, lumbar region
CPT/HCPCS: 72110; 99212

== ENCOUNTER → 2025-09-22 13:56 | Outpatient (BNV) | payer MEDICARE, SELFPAY | PROVIDERS: Visit Provider Radiology Body Imaging | DX: M54.16 Radiculopathy, lumbar region (principal) | CPT/HCPCS: 72110 ==

== ENCOUNTER 2025-09-22 14:04 | Outpatient (AMB) | payer MEDICARE, SELFPAY ==
--- NOTE | 2025-09-22 14:18 | HO.SPINEOV ---
Intake Visit Reasons: MRI f/up - pain after sx Intake Note: Ms. Holley is here to F/u on the results of her MRI. and shes also experiencing pain after surgery. 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 She had excellent results from her resection of right L4-5 synovial cyst done a few months back, but unfortunately the pain returned 2 or 3 weeks ago. She was just walking across a parking lot and it started shooting down her right leg again. She has had a very hard time standing, sitting and walking. The patient came in to follow up on her lumbar MRI. She has nonfocal neurological exam, with the exception of antalgic gait. Her MRI done at [facility] shows that there is excellent resection of the synovial cyst with no recurrence. We do not see any evidence of nerve impingement in the lumbar spine. There is however some signs of slight spondylolisthesis development at L4-5 on her standing x-rays done here in the office today. I reviewed the case with Dr. Gilliam, we would like to give her a little more time to see if she can get through this with conservative treatment. I gave her a referral to PT. She deferred getting an injection, she has had them done for years and they do not have any effect on her. If she fails physical therapy, we can consider her for an L4-5 oblique lumbar interbody fusion to treat the spondylolisthesis we see at L4-5. I will see her back after she finishes physical therapy. Total amount of time spent in this visit was 20 minutes in discussion of symptoms, lumbar imaging results and subsequent plan of care Mic Gilliam MD,PhD [facility] Orders: Orders PT Evaluation and Treatment Today M54.16 - Radiculopathy, lumbar region Coding Level of Care Code Est Pt Level 3 (80136) Diagnoses Lumbar radiculopathy, right M54.16
--- OUTSIDE RECORDS SUMMARY | 2025-09-22 18:19 | XMS_ITS | Data Portability ---
Author Organization [facility], [employer] - [facility] Address [address] [place] [address] Care Team Providers Care Dietetic Technician Registered Name Role Phone CHRISTINA DWYER Primary Care Provider CHRISTINA DWYER Referring Provider Assessment No assessment recorded. Plan of Treatment Reminders Order Date Submit Date Provider Last Modified By Organization Details Last Modified Time Details Appointments None recorded. Lab PPD (purified protein derivative) , skin test 2018 019 [email or web address] [facility], [address] [place] [address], [address], 9 10:29:19 Referral None recorded. Procedures None [...] skin test Result negati ve Not Available [address], [address], 09/01/2019 09:41:10 Result Notes None recorded. 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[place] [address] Information not available 08/26/2019 Mental Status None [...] ICD10 Code Diagnosis IMO Codes Diagnosis Note [id number] Rafael Carrillo MD [place] [address] [place] [address] 07/26/2010 14:37:08 07/26/2010 15:57:33 [id number] Rafael Carrillo MD [facility] Specialty Care [address] [place] [address] [place] [address] 06/06/2011 07:59:19 06/06/2011 09:15:26 [id number] Wojciech Aguilar MD [facility] [address] [place] [address], [facility] [place] [address] 10/18/2011 08:42:12 10/18/2011 09:34:58 [id number] Wojciech Aguilar MD [facility] [address] [place] [address], [facility] [place] [address] 11/14/2011 11:11:50 11/14/2011 12:03:11 [id number] Wojciech Aguilar MD [facility] [address] [place] [address], [facility] [place] [address] 12/03/2011 12:44:36 12/03/2011 13:15:08 [id number] Wojciech Aguilar MD [facility] [address] [place] [address], [facility] [place] [address] 12/16/2011 15:13:20 12/16/2011 16:23:39 [id number] Wojciech Aguilar MD [facility] [address] [place] [address] [place] [address] 03/26/2012 10:18:03 03/26/2012 11:13:39 [id number] Wojciech Aguilar MD [facility] [address] [place] [address], [facility] [place] [address] 04/27/2012 09:29:45 04/27/2012 10:33:00 [id number] Wojciech Aguilar MD [facility] [address] [place] [address], [facility] [place] [address] 05/22/2012 13:05:35 05/25/2012 09:53:07 [id number] Wojciech Aguilar MD [facility] [address] [place] [address], [facility] [place] [address] 06/19/2012 13:01:05 06/19/2012 14:42:31 [id number] Rafael Carrillo MD [facility] Special[facility] Care [address] [place] [address] [place] [address] 10/15/2013 13:14:42 10/24/2013 18:28:33 [id number] Tristan Mae MD [facility] [address] [place], [place] [address] 12/07/2013 09:17:06 12/07/2013 10:42:48 [id number] 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 Have you ever had a positive TB/PPD/Man toux test? no 2. Have you ever been given BCG? 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[address] [address] 10/18/2019 12:28:38 10/18/2019 13:21:54 Infective hepatitis immunization 509376853 Z23 Dose 2 given in office today Requires v aricella vaccination 482860444 Z28.3 Varicella 2 given today in office Administra tion of measles and mumps and rubella vaccine 81755551 Z23 mmr 2 given in office today [id number] SIGRID AVALOS [facility] [address] [place] [address] 05/23/2020 09:57:37 05/23/2020 10:54:33 [id number] [facility] [address] [place] [address] 01/29/2025 13:24:08 01/29/2025 13:44:57 Health Concerns Section Related Observation LastModified by Organization Detai ls LastModified Time None Recorded Concern Status LastModified by Organization Details LastModified Time None Recorded Advance Directives Directive None Recorded Payers Insurance Date Sequence Insurance Name Policy Number Policy Pool Covered Member ID Pool Member ID Guarantor Name 05/21/2014 1 [facility]: [facility]UE [facility] ELECT PREFERRED PLAN (PPO) [id number] Kevin Holley [id number] Sharonda Holley 05/21/2014 1 [place] [id number] Kevin Holley [id number] Sharonda Holley 07/27/2021 1 [facility] [id number] Kevin Hollye [id number] Sharonda Holley 01/29/2025 1 [facility] (MEDICARE REPLACEMENT HMO) Sharonda Holley [id number] Sharonda Holley 01/29/2025 [facility] Sharonda Holley [facility] Sharonda Holley 01/29/2025 1 MEDICARE B-KS: [facility] [employer] Sharonda Holley [id number] Sharonda Holley 05/21/2014 1 [facility] (O) [id number] Kevin Holley [id number] Sharonda Holley Notes Date Note Type Note Provider Name and Address Organization Details Recorded Time 08/30/2019 text/html Pt presents to office for PPD implant, Varicella dose 1, MMR dose 1, and Hep B dose 1. 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 SIGRID Da Silva [address] [place], [place] [address] [place], [address], [facility] 08/30/2019 12:11:49 09/01/2019 text/html Pt is here today for PPD read. She will be a volunteer for [facility] Da Silva [address] [place], [place] [address], [phone], [facility] 09/01/2019 10:13:59 10/18/2019 text/html Patient presents to office for Hep B dose 2, MMR dose 2, and Varicella dose 2. 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 SIGRID Da Silva [address] [place] [address], [address], [facility] 10/19/2019 10:59:30 OBGyn Episode No OBEpisode recorded.
--- OUTSIDE RECORDS SUMMARY | 2025-09-22 18:19 | XMS_ITS | Clinical Summary ---
Author Organization [facility] Address [address] [place] [address] Care Team Providers Care Manager Bakery Name Role Phone Toma Fuentes MD Primary [...] 2025 , 08/25/2023, 07/10/2021, Additional history exists COVID-19 Vaccine (2024-2 6 season) 2025 07/21/2024, 12/02/2023, 08/22/2022, Additional history exists DTaP,Tdap,and Td Vaccines (2 - Td or Tdap) 12/02/2033 12/02/2023 Colon Cancer Screening 11/16/2034 Colonoscopy 11/16/2034 11/16/2024, 08/20/2021 RSV Vaccine (60+ years old a nd patients) (1 - 1-dose 75+ series) 2040 Insurance [facility] Care Teams Manager Bakery Relationship Specialty Start Date End Date Toma Fuentes MD [address] [place] [address] PCP - General 04/24/17
--- OUTSIDE RECORDS SUMMARY | 2025-09-22 18:19 | XMS_ITS | Clinical Summary ---
Author Organization [facility] Address [address] [place] [address] Care Team Providers Care Manager Of Broadcast Content Name Role Phone Unavailable Primary Care Provider [...] Last Done Comments Hepatitis C Screening 1965 MMR (Born 1956-) 1965 Pap Smear 1981 DTaP/Tdap/Td (1 - [...]
--- OUTSIDE RECORDS SUMMARY | 2025-09-22 18:19 | XMS_ITS | Data Portability ---
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 Procedures None recorded. Surgeries cystoscopy (SURG) 2013 014 [facility], [address] [facility], [place], [address], 4 08:38:25 Imaging None recorded. Medication Orders Medrol (Blaze) 4 mg tablets in a dose pack 2024 025 [facility] #[id number], [address] [place], [address], 5 13:38:12 Patient TargetsNo targets recorded. Patient Instructions Encounter Date Encounter Id Patient Instructions Last Modified By Organization Details Last Modified Time 06/19/2012 [id number] OK to restart Bl ack vijay. Reviewed resumption of normal activities. Questions answered. Advised to call prn concerns. Should have annual pelvic exams; paps can be collected q 2-3 years for a while, then stopped if normal. shadi Not available 06/19/2012 14:03:05 12/07/2013 [id number] 1. PHYSICAL THERAPY: pt encouraged to stay [...] introduced kkalava Not available 12/07/2013 10:46:48 05/23/2020 [id number] COVID Preventation slupinski Not availa ble 05/23/2020 10:31:39 Respiratory Home Management slupinski Not available 05/23/2020 10:31:39 sore throat: car e instructions slupinski Not available 05/23/2020 10:31:39 01/29/2025 [id number] follow up with PCP 1 week for [...] 10/15/2013 urina lysis , dipst ick Specific Henderson 1.020 Not Available [facility] [address] [facility] [place], [address], 10/15/2013 13:47:37 10/15/19 14 10/15/2013 urina lysis , dipst ick ph 6.0 Not Available [facility] [address] [facility] [place], [address], 10/15/2013 13:47:37 10/15/19 14 10/15/2013 urina lysis , dipst ick Leukocytes Neg Not Available [address] [place], [address], 10/15/2013 13:47:37 10/15/19 14 10/15/2013 urina lysis , dipst ick Nitrate Neg Not Available [address] [place], [address], 10/15/2013 13:47:37 10/15/19 14 10/15/2013 urina lysis , dipst ick Protein Neg Not Available [address] [place], [address], 10/15/2013 13:47:37 10/15/19 14 10/15/2013 urina lysis , dipst ick Glucose Normal Not Available [address] [place], [address], 10/15/2013 13:47:37 10/15/19 14 10/15/2013 urina lysis , dipst ick Ketone Normal Not Available [facility] [address] [facility] [place], [address], 10/15/2013 13:47:37 10/15/19 14 10/15/2013 urina lysis , dipst ick UBG Normal Not Available [address] [place], [address], 10/15/2013 13:47:37 10/15/19 14 10/15/2013 urina lysis , dipst ick Bilirubin Negati ve Not Available [facility] [address] [facility] [address], [place], [address], 10/15/2013 13:47:37 10/15/19 14 10/15/2013 urina lysis , dipst ick Blood 50 Not Available [facility] [address] [facility] [address], [place], [address], 10/15/2013 13:47:37 05/23/20 20 05/24/2020 SARS CoV 2 RNA (COVI D-19) , QL, naturopath-P CR, respi rator y speci men covid-19 Not Detect ed not detect ed normal This test was devel oped and its perfo rmanc e amara cteri stics deter mined by [facility]. This test has [...] rp Adi barahona [address], [place] [address] Lab Direc tor: Pablito Garcia MD, Phone : [phone] Not Available [facility] [address] [place], [address], 05/24/2020 11:13:27 05/23/20 20 05/25/2020 cultu re, throa t throat culture NORMAL THROAT NAYANA Not Available [facility] [address] [place], [address], 05/25/2020 10:36:19 05/23/20 20 05/23/2020 rapid strep group A, throa t Result negati ve Not Available [facility] [address] [place] [address], [address], 05/23/2020 10:31:30 05/23/20 20 05/23/2020 rapid strep group A, throa t Lot# [id number] Not Available [facility] [address] [place] [address], [address], 05/23/2020 10:31:30 05/23/20 20 05/23/2020 rapid strep group A, throa t Internal Control Valid Not Available [facility] [address] [place] [address], [address], 05/23/2020 10:31:30 08/16/20 21 08/17/2021 SARS- COV-2 [...] and purif ied from nasop haryn geal (TRADING FLOOR OPERATOR), nasal , mid-t urbin ate, and oroph [...] Autho rizat ion (EUA) . Not Available [facility] [address] [place] [address], [address] 08/17/2021 09:35:13 08/20/20 21 08/20/2021 GROSS AND [...] ----- -- PATIE NT: Holley Kameron ACCT: [id number] LOC: MARINA [place] U: [id number] AGE/S X: 56/F ROOM: RE08/[address]: Twan schultz : [birth year] BED: DIS: STATU S: [facility]P [facility] TLOC: ----- ----- ----- ----- ----- ----- ----- ----- ----- ----- ----- ----- ----- ----- ----- ----- ----- ----- -- SPEC : [id number] RECD: 08/21-0 706 STATU S: EZIOCody MAST NUM: [id number] JEANCARLOS: 08/20-[address]: Twan schultz ENTER ED: 08/21-0 707 SP TYPE: Surgi floresita OTHR DR: Maricel Santizo rstra sse ORDER ED: Gross Micro L4/4 Copie s To: Twan schultz [address] [place] [address] [phone] [email or web address] Maricel Santizo rstra sse [address] [place] [address] [phone] [email or web address] Histo logy: TISSU E ID [...] SPEC: [id number] PATIE NT: Kameron Holley [id number] (Cont inued ) ----- ----- ----- [...] -- END OF REPOR T Not Available [facility] [address] [place] [address], [address] 08/22/2021 11:55:48 11/16/19 25 11/16/2024 HEMAT OXYLI [...] ----- -- PATIE NT: Kameron Holley ACCT: [id number] LOC: SUE LIMA U: [id number] AGE/S X: 59/F ROOM: RE11/[address]: Twan schultz MD : 03[birth year]05 BED: DIS: STATU S: DEP [facility] TLOC: ----- ----- ----- ----- ----- ----- ----- ----- ----- ----- ----- ----- ----- ----- ----- ----- ----- ----- -- SPEC : [id number] RECD: 11/16- 229 STATU S: SOUT REQ NUM: [id number] JEANCARLOS: 11/16- [address]: Twan schultz MD ENTER ED: 11/16- 230 SP TYPE: Surgi floresita OTHR DR: Maricel Santizo rstra sse MD ORDER ED: LAWRENCE Stain /2, Gross Micro L4 Copie s To: Twan schultz MD [address] [facility] [address] [facility] [place] [address] [phone] [email or web address] Maricel Santizo rstra sse MD [address] [place] [address] [phone] [email or web address] Histo logy: TISSU E ID BLK [...] ar adeno ma. Gross Descr iptio n [place] ,Kameron a M, date of [birth year] , [...] SPEC: [id number] PATIE NT: Kameron Holley [id number] (Cont inued ) ----- ----- ----- [...] -- END OF REPOR T Not Available [facility] [address] [place] [address], [address] 11/19/2024 11:53:57 10/15/19 14 10/04/2013 imagi ng/di [facility] ed. CRISTIANO Not Available 2013 13:56:13 12/08/19 14 03/01/2011 imagi ng/di agnos tic resul t No observ ation record ed. kkalava Not Available 2013 17:36:48 12/08/19 14 08/24/2010 imagi ng/di agnos tic resul t No observ ation record ed. kkalava Not Available 2013 17:36:48 12/23/19 14 12/21/2013 radio logy repor t Locati on: [facility] O[facility] DEPART [address] RADIOL OGY [phone] [place]. [address] FAX: [phone] ___ MIRELLA [place] [id number] 067 OR [id number] 1532 Sonia Mae MD F OBSV: Other Provid er: ; [phone] LUMBAR TPI/ [place] [address] [facility] RADIOL OGY REPORT MIRELLA [place] 1964 Tritsan [place] [address]+ [place]: [place] [address]+ , [facility] 40115+ CLINIC AL INDICA TION: CAUDAL NORI FINDIN [...] //add1 // //add3 // //add2 // Author cuhy gabriel #: Ins. Group #: [id number] Ins. Group Name: BARBARA LOOMIS Ins. Policy #: [id number] [facility] [address] [place] [address], [place], [address], 09/13/2015 04:00:16 12/23/19 14 12/21/2013 radio logy repor t Locati on: [facility] DEPART [address] RADIOL OGY [phone] [place]. [address] FAX: [phone] ___ MIRELLA [place] [id number] 068 OR [id number] 1531 Sonia Mae MD F OBSV: Other Provid er: ; [phone] LUMBAR TPI/ CAUDAL NORI [facility] 63395+ CAUD[facility] NORI RADIOL OGY REPORT MIRELLA [place] 1964 Tristan Mae MD [facility] [employer] [facility] [address]+ [place]: [place] [address]+ , [facility] [employer] SP[facility] 23727+ CLINIC AL INDICA TION: CAUDAL NORI FINDIN [...] Author vasubeatrizmartir gabriel #: Ins. Group #: [id number] Ins. Group Name: BARBARA LOOMIS Ins. Policy #: [id number] [facility] [address] [place], [place] [address] [place], [address], 09/13/2015 04:00:16 10/20/19 16 07/31/2010 imagi ng/rey rodasos tic resul t No observ ation record ed. [email or web address] Not Available 2015 14:29:45 Result Notes None recorded. Problems Name Problem SNOMED Code Status Onset Date Resolution Date Notes Provider Name and Address Organization Details Recorded Time Increased frequency of urination 270635550 Active Not Available [facility] 3 03:06:39 Urgent desire to urinate 02594728 Active Not Available [facility] 3 03:06:39 Urge incontinence of urine 31710989 Active Rafael Carrillo MD [address] [place], [place] [address] [place], [address] , [facility] 4 14:13:22 Pain Active Not Available [facility] 3 03:06:39 Menstruation finding Active Not Available [facility] 3 03:06:39 Blood in urine 14208917 Active Rafael Carrillo MD [address] [place] [address] [place], [address] , [facility] 4 14:13:22 Lumbar post-laminect clayton syndrome 076233637 Active Tristan Mae MD [address] [place] [address] [place], [address] , [facility] 4 10:46:47 Chronic pain syndrome 388754077 Hodan Mae MD [address] [place] [address] [place], [address] , [facility] 4 10:46:47 Lumbar radiculopathy 322388049 Hodan Mae MD [address] [place] [address] [place], [address] , [facility] 4 10:46:47 Arthropathy of lumbar facet joint 020915540 Hodan Mae MD [address] [place] [address] [place], [address] , [facility] 4 10:46:47 Degeneration of lumbar intervertebra l disc 00179819 Hodan Mae MD [address] [place] [address] [place], [address] , [facility] 4 10:46:47 Myofascial pain 730477975 Hodan Mae MD [address] [place] [address] [place], [address] , [facility] 4 10:46:47 Problem Notes None recorded. Procedures Surgical History Date Name Laterality Status Provider Name and Address Organization Details Recorded Time 025 Colonoscopy w/lesion removal completed Catarina Larios [facility] 12/08/2024 15:37:09 021 Colonoscopy w/lesion removal completed Catarina Larios [facility] 09/24/2021 15:07:50 012 LAPAROSCOPICALLY ASSISTED VAGINAL HYSTERECTOMY (SURG) completed Not Available [facility] 04/30/2013 04:06:21 012 Hysteroscopy with Endometrial Biopsy or IUD Removal completed Wojciech Aguilar MD [address] [place], [place] [address], [address], [facility] 11/14/2011 12:03:32 010 Cystourethroscopy completed Not Available [facility] 08/21/2011 06:32:29 010 CYSTOSCOPY (SURG) completed Not Available [facility] 04/30/2013 03:24:56 995 hernia repair completed Not Available [facility] 08/21/2011 06:32:29 section completed Kajal Zavaleta CMA [facility] 10/18/2011 09:04:20 CYSTOSCOPY (SURG) completed Not Available [facility] 04/30/2013 03:24:27 Imaging Results None recorded. Procedure Notes None recorded. Medical Equipment None Reported. Allergies Allergen ID Allergen Name Allergen Category Reaction Reaction Severity Criticality Documentation Date Start Date Code Code System Note Provider Name and Address Organization Details Recorded Time morphine medicatio n itching Not available Not available 07/26/2010 7052 RxNorm muscl e pain Not Available [facility] 06:32:06 02249 Lipitor medicatio n Not available Not available Not available 07/26/2010 52433 5 RxNorm Not Available [facility] 06:32:06 Medications Name Sig Start Date Stop [...] Available Not Available No t Available Fluzone 3135-2436( PF) 45 mcg (15 mcg x 3)/0.5 [...] Details Last Updated DateTime 4 163.83 cm 63880.3 86359 g 33 kg/m2 98.2 [degF] 102 /min 128/77 mm[Hg] Corrine tran [facility] 4 13:47:35 Date Recorded Body height Body weight Body mass index (BMI) Body temperature Heart rate Systolic And Diastolic Provider Name and Address Organization Details Last Updated DateTime 4 162.56 cm 98285.6 9689 g 33.8 kg/m2 98.2 [degF] 90 /min 140/86 mm[Hg] Wojciech Etienne [facility] 4 09:43:58 Date Recorded Body temperature Oxygen saturation Heart rate Systolic And Diastolic Provider Name and Address Organization Details Last Updated DateTime 01/29/2025 98.5 [degF] 98 % 118 /min 160/80 mm[Hg] HECTOR Quick [facility] 5 13:29:12 Date Recorded Heart rate Oxygen saturation Body temperature Systolic And Diastolic Provider Name and Address Organization Details Last Updated DateTime 05/23/2020 92 /min 99 % 99.5 [degF] 140/90 mm[Hg] SIGRID AVALOS [address] [place] [address], [address] , [facility] 0 10:33:24 Date Recorded Body weight Provider Name an d Address Organization Details Last Updated DateTime 05/23/2020 08593.89 g Ruthie benedict [facility] 05/23/2020 10:07:16 Social History Question Answer Notes LastModified by Organizat ion Details LastModified Time Tobacco Smoking Status Current Every Day Smoker belinda Carrillo MD [address] [place] [address], [address], [facility] 07/26/2010 15:43:50 Education 12 Information no t available 12/07/2013 Work Status Off Work Since: Information not available 12/07/2013 Living Situation With Spouse Informa tion not available 12/07/2013 Disabled? If Yes, How Long? Yes Information not available 12/07/2013 An Shoe Handler Involved? If Yes, Who? No Information not [...] LastModified Time Mother Malignant neoplastic disease farhat [place] (previ ously record ed as cancer -other ) [email or web address] 51840 Not available 07/06/2013 03:01:07 Mother Kidney disease [id number] 39701 Not available 07/06/2013 03:01:07 Sister Disorder of thyroid gland previo usly record ed as thyroi d diseas e [id number] 48120 Not available 07/06/2013 03:01:07 Father Malignant neoplastic disease oral (previ ously record ed as cancer -other ) [email or web address] 25790 Not available 07/06/2013 03:01:07 Medical History Condition Response cancer N HIV or AIDS N arthritis N asthma N glaucoma N taking blood thinners N ulcers N depression Y high blood pressure N other GI illness N kidney disease N GERD / reflux N psychiatric illness N liver disease N arrhythmia N diabetes N emphysema / COPD N heart disease N heart attack N seizures N anesthesia allergy/complications N skin condition N other N thyroid disease or other endocrine probl ems Y headaches or migraines N stroke N bleeding disorders N Gynecological History Statement/Question Response 09/12/2011 Contraception Vasectomy Para 2 Living children 2 Obstetrics History GPAL:G 0 P 0 0 0 0 Immunizations Vaccine Type Date Status Note Provider Nam e and Address Organization Details Recorded Time Influenza, recombinant, quadrivalent, PF 0 completed Sofia Jones MD [address] [place], [place] [address], [address], [facility] 01/29/2025 22:00:08 zoster recombinant 0 completed Sofia Jones MD [address] [place] [address] [place], [address], [facility] 01/29/2025 22:00:08 MMR 0 jj Jones MD [address] [place] [address] [place], [address], [facility] 01/29/2025 22:00:08 MMR 9 completed Sofia Jones MD [address] [place], [place] [address], [address], [facility] 01/29/2025 22:00:08 COVID-19, mRNA, LNP-S, PF, 100 mcg/0.5mL dose or 50 mcg/0.25mL dose 1 completed Sofia Jones MD [address] [place] [address] [place], [address], [facility] 01/29/2025 22:00:08 COVID-19, mRNA, LNP-S, PF, 100 mcg/0.5mL dose or 50 mcg/0.25mL dose 1 completed Sofia Jones MD [address] [place] [address] [place], [address], [facility] 01/29/2025 22:00:08 COVID-19, mRNA, LNP-S, PF, 30 mcg/0.3 mL dose 2 completed Sofia Jones MD [address] [place] [address] [place], [address], [facility] 01/29/2025 22:00:08 COVID-19, mRNA, LNP-S, PF, 30 mcg/0.3 mL dose, marcelino-sucrose 2 completed Sofia Jones MD [address] [place] [address] [place], [address], [facility] 01/29/2025 22:00:08 COVID-19, mRNA, LNP-S, bivalent, PF, 30 mcg/0.3 mL dose 2 completed Sofia Jones MD [address] [place] [address] [place], [address], [facility] 01/29/2025 22:00:08 COVID-19, mRNA, LNP-S, PF, 50 mcg/0.5 mL 4 completed Sofia Jones MD [address] [place] [address] [place], [address], [facility] 01/29/2025 22:00:08 COVID-19, mRNA, LNP-S, PF, 50 mcg/0.5 mL 4 completed Sofia Jones MD [address] [place] [address] [place], [address], [facility] 01/29/2025 22:00:08 Tdap 4 completed Sofia Jones MD [address] [place] [address] [place], [address], [facility] 01/29/2025 22:00:08 varicella 0 completed Sofia Jones MD [address] [place] [address] [place], [address], [facility] 01/29/2025 22:00:08 varicella 9 completed Sofia Jones MD [address] [place] [address] [place], [address], [facility] 01/29/2025 22:00:08 Influenza, split virus, trivalent, PF 5 completed Sofia Jones MD [address] [place] [address] [place], [address], [facility] 01/29/2025 22:00:08 Hep B, adult 0 completed Sofia Jones MD [address] [place] [address] [place], [address], [facility] 01/29/2025 22:00:08 Hep B, adult 9 completed Sofia Jones MD [address] [place] [address] [place], [address], [facility] 01/29/2025 22:00:08 Influenza, split virus, quadrivalent, PF 1 completed Sofia Jones MD [address] [place] [address] [place], [address], [facility] 01/29/2025 22:00:08 Influenza, split virus, quadrivalent, PF 3 completed Sofia oJnes MD [address] [place] [address] [place], [address], [facility] 01/29/2025 22:00:08 Influenza, recombinant, trivalent, PF 4 completed Sofia Jones MD [address] [place] [address] [place], [address], [facility] 01/29/2025 22:00:08 Past Encounters Encounter ID Performer Location Encounter Start Date Encounter Closed Date Diagnosis/Indication Diagnosis SNOMED-CT Code Diagnosis ICD10 Code Diagnosis IMO Codes Diagnosis Note [id number] Rafael Carrillo MD [facility] [address] [place] [address] [place] [id number] 07/26/2010 14:37:08 07/26/2010 15:57:33 [id number] Rafael Carrillo MD [facility] [address] [place] [address] [place] [address] 06/06/2011 07:59:19 06/06/2011 09:15:26 [id number] Wojciech Aguilar MD [facility] [place] [address] [place] [address] 10/18/2011 08:42:12 10/18/2011 09:34:58 [id number] Wojciech Aguilar MD [facility] [address] [place] [address] 11/14/2011 11:11:50 11/14/2011 12:03:11 [id number] Wojciech Aguilar MD [facility] [address] [place] [address] 12/03/2011 12:44:36 12/03/2011 13:15:08 [id number] Wojciech Aguilar MD [facility] [address] [place] [address] 12/16/2011 15:13:20 12/16/2011 16:23:39 [id number] Wojciech Aguilar MD [facility] [address] [place] [id number] 03/26/2012 10:18:03 03/26/2012 11:13:39 [id number] Wojciech Aguilar MD [facility] [address] [place] [address] 04/27/2012 09:29:45 04/27/2012 10:33:00 [id number] Wojciech Aguilar MD [facility] [address] [place] [address] 05/22/2012 13:05:35 05/25/2012 09:53:07 [id number] Wojciech Aguilar MD [facility] [address] [place] [address] [address] [place] [address] 06/19/2012 13:01:05 06/19/2012 14:42:31 [id number] Rafael Carrillo MD [facility] [address] [facility] [address] [place] [address] 10/15/2013 13:14:42 10/24/2013 18:28:33 Blood in urine 48596532 cystoscopy is planned Urge incon tinence of urine 91478263 resolved [id number] Tristan Mae MD [facility] [address] [place], [place] [address] 12/07/2013 09:17:06 12/07/2013 10:42:48 Lumbar post-laminectomy syndrome 682978084 Chronic pain syndrome 035036151 Lumbar radiculopathy 874711108 Arthropath y of lumbar facet joint 762653565 Degenerati on of lumbar intervertebral disc 89194604 Myofascial pain 207290725 [id number] 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 [address] [place] [id number] 08/30/2019 09:24:54 08/30/2019 10:24:13 [id number] SIGRID Da Silva Occupatio nal Medicine [address] [place] [address] 09/01/2019 09:35:48 09/01/2019 10:19:55 [id number] 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 Acute pharyngitis 923697 003 J02.9 Pt presents with sore throat, cough, body aches -Vitals stable, lungs CTA b/l, erythemato us throat -Screen for strep and COVID Rapid strep negative, culture pending. Likely viral cause. Supportive care with rest, fluids, salt water gargles, Ibuprofen/ Tylenol PRN. Follow-up in 2-3 days if not improving or sooner if worsening. [id number] SIGRID [facility] [address] [place] [address] 01/29/2025 13:24:08 01/29/2025 13:44:57 Sciatica 40517457 M54.31 [id number] Sciatica without low back pain has responded [...] Pool Member ID Guarantor Name 05/21/2014 1 [facility] PREFERRED PLAN (PPO) [id number] Kevin [place] [id number] Mirella [place] 05/21/2014 1 [facility] (PPO) [id number] Kevin [place] [id number] Mirella Holley 07/27/2021 1 [facility] [place] OPEN ACCESS PLUS [id number] Kevin Holley [id number] Mirella Holley 05/21/2014 1 [facility] (O) [id number] Kevin Holley [id number] Mirella Holley 01/29/2025 1 [facility] (MEDICARE REPLACEMENT HMO) Mirella Holley [id number] Mirella Holley 01/29/2025 1 MEDICARE B-RI: [facility] [employer] Mirella Holley [id number] Mirella Holley 01/29/2025 [facility] Mirella Holley [facility] Mirella Holley Notes Date Note Type Note [...] Notes: On usual analgesics. 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 Rudi Seymour III, MD [address] [place], [phone], [facility] 05/25/2020 06:16:20 5 text/html ROS as noted [...] of steroids. etpac Sofia Jones MD [address] [place], [phone], [facility] 01/29/2025 22:06:02 OBGyn Episode No OBEpisode recorded.
== END 2025-09-22 15:59 | disposition home or self-care (01) ==
LOC: HO.HNS 14:05
PROVIDERS: PCP Family Medicine; Visit Provider Physician Assistant
DX: M54.16 Radiculopathy, lumbar region (principal)
CPT/HCPCS: 99024